=== PATIENT | male | born 1990 | race African-American/Black ===

== ENCOUNTER 2020-10-26 02:00 | Inpatient (IN) | payer BC, SELFPAY ==
[2020-10-26] VITALS (13 sets, daily range): BP systolic 128–166; BP diastolic 29–105; PULSE 77–104; RESP 15–24; TEMP 36.1–36.8; O2SAT 93–99; BMI 35.2
--- NOTE | ~2020-10-26 | CT_ITS ---
EXAMINATION: CT abdomen pelvis w con INDICATION: Upper abdominal pain and vomiting TECHNIQUE: Computed tomographic images of the abdomen and pelvis were obtained after the administrati on of 100 cc of Omnipaque 350 intravenous contrast. The dose-length product (DLP) was 1180.05 mGy-cm. Automated exposure control and iterative reconstruction technique were employed. COMPARISON: None available FINDINGS: The lung bases are clear. The heart size is normal. The liver is diffusely low in attenuati on when compared with the spleen, consistent with hepatic steatosis. The spleen, pancreas, gallbladde r, and adrenal glands are normal. The kidneys are unremarkable. No pathologically enlarged abdominal or pelvic lymph nodes are identified. There is no free intraperitoneal gas or evidence of bowel obstr uction. The appendix is normal. IMPRESSION: 1. No CT correlate for the patient's symptoms. Reviewed, dictated and finalized at location A. GE DECKHAND
--- NOTE | 2020-10-26 02:03 | ED.ABDPAIN ---
HPI - Abdominal Pain General Chief Complaint: Abdominal Pain Stated Complaint: abd pain x 2 weeks Time Seen by Provider: 10/26/20 02:03 Source: patient and EMS Mode of arrival: EMS Limitations: no limitations History of Present Illness HPI narrative: Patient is a 30 yo male with a hx of acid reflux presenting for evaluation of abdominal pain and vomiting. Pt reports vomiting over past two weeks and unintentional 30 lb weight loss. Pt reporting epigastric abdominal pain and lower abdominal pain. No radiation of the pain. Pain is burning, sharp in nature. Pt states he has vomited many times over the past two weeks with inability to tolerate oral intake. Patient has a history of constipation and has been taking over the counter medication to help with his constipation. He reports subjective fever without chills. He also reports headache. Related Data Home Medications Medication Instructions Recorded Confirmed No Home Medications 10/26/20 10/26/20 Allergies Allergy/AdvReac Type Severity Reaction Status Date / Time No Known Allergies Allergy Verified 10/26/20 02:08 Review of Systems Review of Systems: Narrative: CONSTITUTIONAL: Reports subjective fever and chills EYES: Denies visual changes, redness, or discharge. ENT: Denies rhinorrhea, congestion, sore throat, or otalgia. CARDIOVASCULAR: Denies chest pain, palpitations, or edema. RESPIRATORY: No cough, reports shortness of breath GASTROINTESTINAL: Reports upper abdominal pain, nausea and vomiting GENITOURINARY: Denies dysuria or hematuria. SKIN: Denies rash or itching. MUSCULOSKELETAL: Denies back pain, joint pain, or myalgia. NEUROLOGIC: Reports mild headache without weakness or numbness PMFSH Past Medical History Medical History (Updated 10/26/20 @ 04:28 by Unique Coe MD) Acid reflux Surgical History Surgical History (Updated 10/26/20 @ 02:15 by Unique Coe MD) No pertinent past surgical history Social History Social History (Updated 10/26/20 @ 02:15 by Unique Coe MD) Smoking status: Never smoker Alcohol intake: never Substance use: never Gender identity (if verbalized by the patient): Male Exam Narrative: Exam Narrative: GENERAL: Awake, alert, conversant HEAD: Normocephalic, atraumatic. EYES: PERRLA and EOMI. ENT: Nares clear, no rhinorrhea or epistaxis. Mucous membranes moist. NECK: Supple. CHEST: No respiratory distress, breathing even and non labored HEART: Regular rate, sinus rhythm ABDOMEN:Obese, Non distended, mildly tender in epigastrium EXTREMITIES: Normal range of motion. No edema. SKIN: Warm, dry, no rash. NEURO:No focal deficits. Alert and oriented x3 Course Vital Signs Vital signs: Vital Signs Temperature 36.1 C L 10/26/20 01:59 Pulse Rate 104 H 10/26/20 01:59 Respiratory Rate 20 10/26/20 01:59 Blood Pressure 137/97 H 10/26/20 01:59 Pulse Oximetry 96 10/26/20 01:59 Temperature 36.1 C L 10/26/20 01:59 Pulse Rate 96 10/26/20 04:55 Respiratory Rate 18 10/26/20 04:55 Blood Pressure 130/84 10/26/20 04:55 Pulse Oximetry 98 10/26/20 04:55 MDM - Abdominal Pain MDM Narrative Medical decision making narrative: Patient presented for evaluation of abdominal pain, nausea, vomiting and unintentional weight loss. The time of assessment, patient is mildly tachycardic, no severe tenderness on abdominal exam. Abdominal exam is quite benign. Laboratory results are concerning for DKA. Patient has a hyperglycemic state, glucose 500, he is acidotic with a metabolic acidosis. He has a mild transaminitis. No hyperbilirubinemia or leukocytosis. No UTI. Patient has ketones present in his urine and an anion gap of 21. No severe electrolyte derangement. Patient was started on IV fluids, given an insulin bolus and started on insulin infusion. Patient without previous history of diabetes. Wood Scaler consulted, patient will be admitted to the ICU. Differential Diagnosis Differential prosper
--- NOTE | 2020-10-26 02:16 | ECG_ITS ---
Measurements Intervals [place] Rate: 96 P: 51 MS: 154 QRS: 16 QRSD: 90 T: 16 QT: 347 QTc: 439 Interpretive Statements SINUS RHYTHM VOLTAGE CRITERIA FOR LVH NONSPECIFIC T-WAVE ABNORMALITY- INF/LAT LEADS BASELINE ARTIFACT- I, II, III, AVR, AVL BORDERLINE ECG Electronically Signed On 10-26-2020 9:24:31 COAT JOINER LOCKSTITCH by Rufus Leavitt D.O.
[2020-10-26] MEDS: SODIUM CHLORIDE 0.9% IV 1,000 ML 999 ML IV CONT ×2 (02:28→04:50)
[2020-10-26] MEDS: FAMOTIDINE 20 MG/2 ML VIAL IV PUSH (02:29)
[2020-10-26] MEDS: ONDANSETRON INJ 4 MG/2 ML VIAL IV PUSH (02:29)
[2020-10-26] MEDS: MAG HYDROX/AL HYDROX/SIMETH 30 ML UDC PO (02:29)
[2020-10-26] MEDS: MORPHINE SULFATE (*CRX) 4 MG/ML INJ IV PUSH (02:29)
[2020-10-26] MEDS: DICYCLOMINE HCL INJ 20 MG/2 ML VIAL IM (02:30)
[2020-10-26 03:34] LABS: Basophils Absolute Auto 0.1 K/mm3 (0.0-0.1); Basophils Percent Auto 0.8 % (0.2-1.2); Eosinophils Absolute Auto 0.1 K/mm3 (0-0.3); Eosinophils Percent Auto 0.8 % (0-4.4); Hematocrit 50.8 % (42.0-52.0); Hemoglobin 17.7 g/dL (14.0-18.0); Immature Granulocyte Absolute 0.02 K/mm3 (0.00-0.031); Immature Granulocyte Percent A 0.3 % (0-0.5); Lymphocytes Percent Auto 34.2 % (18.3-44.2); Mean Corpuscular HGB Conc 34.8 g/dl (32-36); Mean Corpuscular Hemoglobin 31.6 pg (26-34); Mean Corpuscular Volume 90.7 fl (80-100); Mean Platelet Volume 12.7 fl (7.4-10.4); Monocytes Absolute Auto 0.6 K/mm3 (0.1-0.6); Monocytes Percent Auto 9.2 % (2.6-8.5); Neutrophils Absolute Auto 3.5 K/mm3 (1.3-6.7); Neutrophils Percent Auto 54.7 % (45.5-73.1); Platelet Count Result 182 k/mm3 (150-375); Red Cell Distribution Width 12.4 % (11.5-14.5); White Blood Count 6.4 K/mm3 (4.5-10.0)
[2020-10-26 03:37] LABS: Add Urine Microscopic? YES; Appearance Urine Clear (Clear); Bilirubin Urine Negative (Negative); Blood Urine 1+ (Negative); Color Urine Straw (Yellow); Glucose Urine UA 3+ mg/dL (Negative); Ketones Urine 2+ mg/dL (Negative); Leukocyte Esterase Ur Negative LEU/UL (Negative); Mucus Urine Rare /lpf; Nitrate Urine Negative (Negative); Protein Urine 1+ mg/dL (Negative); Squamous Epithelial Cell Urine Rare /hpf (Few); Urobilinogen Urine Negative mg/dL (<2.0); WBC Urine 0-3 /hpf
[2020-10-26 03:46] LABS: INR 1.1; Partial Thromboplastin Time 21.7 SECONDS (22.3-36.8); Prothrombin Time 14.3 Seconds (11.1-14.7)
[2020-10-26 03:57] LABS: Specific Grav Ur 1.033 (1.001-1.035)
[2020-10-26 03:58] LABS: Alanine Aminotransferase 65 U/L (4-50); Albumin Level 4.7 g/dL (3.5-5.1); Alkaline Phosphatase 171 U/L (38-126); Anion Gap 21 mmol/L (8-16); Aspartate Amino Transferase 33 U/L (17-59); Bilirubin,Total 0.8 mg/dL (0.2-1.3); Blood Urea Nitrogen 15 mg/dL (9-20); Calcium 10.3 mg/dL (8.4-10.2); Carbon Dioxide 18 mmol/L (22-30); Chloride 94 mmol/L (98-107); Estimated Glomerular Filt Rate > 60; Glucose 500 mg/dL (75-110); Lipase 229 U/L (23-300); Sodium 133 mmol/L (137-145)
[2020-10-26 03:59] LABS: Troponin I 0.029 ng/mL (0.000-0.034)
[2020-10-26 04:33] LABS: Alveolar/Arterial O2 Gradient 18.5 mmHg; Base Excess ABG -11.1 mEq/l (+/-2.0); Carboxyhemoglobin 0.6 % THb (0-2.0); Fractional Inspired Oxygen 21 %; HCO3 ABG 15.3 mEq/l (22.0-26.0); Methemoglobin ABG 0.5 %THb (0-1.5); Oxygen Content ABG 22.8 %vol (16.0-22.0); Oxygen Saturation ABG 95.2 % (95.0-100.0); Oxyhemoglobin 94.7 % THb (90.0-100.0); PCO2 ABG 36.7 mmHg (35.0-45.0); PO2 ABG 87.3 mmHg (80.0-100.0); PO2 FiO2 Ratio Arterial Blood 4.16 %; Reduced Hemoglobin 4.2 %THb (0-5.0); Total Hemoglobin 17.1 g/dL (12.0-18.0); pH ABG 7.239 (7.350-7.450)
[2020-10-26 04:34] LABS: Device ROOM AIR; Modified Allen's Test Pass; Site Drawn RIGHT RADIAL
[2020-10-26] MEDS: INSULIN HUMAN REGULAR (*BKC) 100 UNITS/ML 10 UNITS IV PUSH (04:50)
[2020-10-26 04:51] LABS: Magnesium 1.8 mg/dL (1.6-2.3); Phosphorus 4.5 mg/dL (2.5-4.5)
--- NOTE | 2020-10-26 05:09 | PC.NURSE ---
Patient's bedside glucose is 362.
[2020-10-26] MEDS: INSULIN HUMAN REGULAR (*BKC) 100 UNITS in SODIUM CHLORIDE 0.9% IV 99 ML 6.04 UNITS IV CONT (05:13)
[2020-10-26 05:58] LABS: Glucose Point of Care 362 (65-105)
[2020-10-26 06:05] LABS: Beta-Hydroxybutyrate/Acetoacetate 7.17 mmol/L (0.02-0.27)
--- NOTE | 2020-10-26 06:55 | ADMIMU ---
This patient, Placido Mohr, was admitted to IMU status, and placed in Intensive Care Unit-8 at 0605 Patient/family oriented to hospital policies and general routines including ID bracelet, bed and alarms, visiting hours, pain management, procedures, bathroom and other care routines, personal items, smoking policy, room service/diet, and visiting hours. Information on how to activate the Rapid Response Team has been discussed. Patient/Family are encouraged to report perceived risks to care and to ask questions if they do not understand what they are told or what they should do.
[2020-10-26] MEDS: SODIUM CHLORIDE 0.9% IV 1,000 ML 150 ML IV CONT (07:15)
[2020-10-26] MEDS: KCL 20 MEQ/D5/0.45% SOD CHL 1,000 ML 150 ML IV CONT (07:51)
[2020-10-26] MEDS: PANTOPRAZOLE SODIUM IV 40 MG VIAL IV PUSH (08:30)
[2020-10-26 08:38] LABS: Glucose Point of Care 280 (65-105)
[2020-10-26 08:38] LABS: Glucose Point of Care 235 (65-105)
[2020-10-26 08:38] LABS: Glucose Point of Care 245 (65-105)
[2020-10-26 09:03] LABS: Hemoglobin A1C 13.1 % (<5.7)
[2020-10-26 09:43] LABS: Anion Gap 15 mmol/L (8-16); Blood Urea Nitrogen 12 mg/dL (9-20); Calcium 9.2 mg/dL (8.4-10.2); Carbon Dioxide 20 mmol/L (22-30); Chloride 104 mmol/L (98-107); Estimated CRCL calculation 113 ml/min; Estimated Glomerular Filt Rate > 60; Glucose 235 mg/dL (75-110); Potassium 4.2 mmol/L (3.4-5.0); Sodium 139 mmol/L (137-145)
--- NOTE | 2020-10-26 10:01 | WPDCNINT ---
Assessment and Plan Assessment and plan (1) DKA (diabetic ketoacidoses): Qualifiers: Diabetes mellitus complication detail: without coma Diabetes mellitus type: due to underlying condition Qualified Code(s): E08.10 - Diabetes mellitus due to underlying condition with ketoacidosis without coma Code(s): E11.10 - Type 2 diabetes mellitus with ketoacidosis without coma Status: Acute Assessment and Plan: IV fluid bolus and infusion Insulin infusion Q.1 hour Accu-Chek Q.4 hours BMP Start clear liquids as patient denies any nausea vomiting at this time (2) Diabetes mellitus type 2 with complications: Code(s): E11.8 - Type 2 diabetes mellitus with unspecified complications Status: Acute Assessment and Plan: Check HbA1c (3) GERD (gastroesophageal reflux disease): Code(s): K21.9 - Gastro-esophageal reflux disease without esophagitis Status: Acute Assessment and Plan: PPI (4) Abdominal pain: Code(s): R10.9 - Unspecified abdominal pain Status: Acute Assessment and Plan: Likely secondary to DKA Abdomen CT was done and report is pending UA and lipase were normal (5) Elevated liver enzymes: Code(s): R74.8 - Abnormal levels of other serum enzymes Status: Acute Assessment and Plan: Mildly elevated LFT. 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 Patient told me that he was feeling fine until 2 weeks ago when he started having mild abdominal pain which is in lower abdomen, 07/24, 'just hurt'in quality, no radiation, no aggravating or relieving factor. Pain was as stated with nausea vomiting. He thought he was constipated and took some laxative but did not help. He always thought he was having heartburn and took Tums but did not help. Initially he was drinking lot of fluids and soda but recently was unable to keep anything down. He told me he lost 30-40 lb of weight in last few weeks, poor appetite, he was going to bathroom frequently and urinating. No dysuria or hematuria. He thought he was having UTI and to 2 days of antibiotics that he took from his mother. He thinks it was penicillin although he is not sure but that did not help either. Patient denies fever, sick contact with COVID-19, change in sensation of smell or taste, chest pain, shortness of breath, cough, headache. Positive for constipation as above mentioned. All other systems were reviewed and were negative except HPI mentioned above Social history -used to smoke and drink but quit few weeks ago. No drug use Family history-diabetes in both grandparents and on Past medical history-reflux Current meds-none In ED patient was found to be in DKA. He was given IV fluid bolus and started on IV fluids and insulin infusion admitted to ICU for further evaluation management Review of Systems Review of Systems: All systems reviewed & are unremarkable except as noted in HPI and below (HPI) PMFSH Past Medical History Medical History Acid reflux Surgical History Surgical History No pertinent past surgical history Family History Family History Mother Hypertension Grandparent Prostate carcinoma Grandparent Diabetes mellitus Social History Social History Smoking packs per day: 0.25 Smoking cigarettes per day: 5.0 Years smoked: 7 Smoking pack-years: 1.75 Smoking status:
[2020-10-26] MEDS: INSULIN HUMAN REGULAR (*BKC) 100 UNITS in SODIUM CHLORIDE 0.9% IV 99 ML 23.9 UNITS IV CONT (12:10)
[2020-10-26 13:18] LABS: Anion Gap 11 mmol/L (8-16); Blood Urea Nitrogen 10 mg/dL (9-20); Calcium 8.5 mg/dL (8.4-10.2); Carbon Dioxide 24 mmol/L (22-30); Chloride 102 mmol/L (98-107); Estimated CRCL calculation 125 ml/min; Estimated Glomerular Filt Rate > 60; Glucose 210 mg/dL (75-110); Potassium 3.3 mmol/L (3.4-5.0); Sodium 137 mmol/L (137-145)
[2020-10-26] MEDS: ACETAMINOPHEN 325 MG TABLET 650 MG PO (13:47)
[2020-10-26] MEDS: POTASSIUM CHLORIDE 20 MEQ TABLET 40 MEQ PO (13:47)
[2020-10-26 13:59] LABS: Glucose Point of Care 391 (65-105)
[2020-10-26 13:59] LABS: Glucose Point of Care 205 (65-105)
[2020-10-26 13:59] LABS: Glucose Point of Care 353 (65-105)
[2020-10-26 13:59] LABS: Glucose Point of Care 270 (65-105)
[2020-10-26 13:59] LABS: Glucose Point of Care 243 (65-105)
[2020-10-26 13:59] LABS: Glucose Point of Care 325 (65-105)
[2020-10-26 15:00] LABS: Glucose Point of Care 219 (65-105)
--- NOTE | 2020-10-26 16:06 | HP_ITS ---
DATE OF SERVICE: 10/26/2020 CHIEF COMPLAINT: Abdominal pain. HISTORY OF PRESENT ILLNESS: The patient is a 30-year-old male with history of gastroesophageal reflux disease, admitted with abdominal pain and vomiting going on for the last few days. The patient says, gradually he is getting weak and he also has increased urination and polydipsia, going on for the last few days, so he has decided to come to the emergency room. In the emergency room, patient was found to have very high sugar and ketones positive, so patient is admitted for further evaluation and treatment. At the present time, the patient is lying comfortably. His abdominal pain has slightly decreased. The patient's vomiting has decreased. The patient denies any shortness of breath or chest pain. REVIEW OF SYSTEMS: Positive for generalized weakness, nausea, vomiting, or abdominal pain. All other 10 review of systems reviewed. The patient found to be negative. PAST MEDICAL HISTORY: Gastroesophageal reflux disease. PAST SURGICAL HISTORY: None. SOCIAL HISTORY: Nonsmoker. No alcohol. Lives with the family. FAMILY HISTORY: Father and mother side have no family history of diabetes according to the patient. CURRENT MEDICATIONS: None. ALLERGIES: THE PATIENT IS NOT ALLERGIC TO ANY MEDICATION. PHYSICAL EXAMINATION: VITAL SIGNS: At time of admission, blood pressure was 150/90, pulse rate 104, temperature 36.1, respiration rate 20, and pulse ox 98. HEENT: Pupils are equally, reacting to light. NECK: No JVD. No bruit. Neck supple. LUNGS: Air entry good. No additional sound. HEART: S1, S2. Rate and rhythm regular. No S3. No murmurs. ABDOMEN: Soft. Mild generalized tenderness. Bowel sounds positive. No hepatosplenomegaly. EXTREMITIES: No cyanosis or edema. WINDOWS APPLICATION ADMINISTRATOR: Alert and oriented x3. No focal deficits. LABORATORY DATA: Important laboratory data showed WBC count 6.4, hemoglobin 17.7, and platelet count is 182. Sodium 133, potassium 4.0, BUN 15, creatinine 1.0, bicarb was 18, glucose was 500. The patient UA was negative. ABG, pH was 7.23, bicarb was 15, oxygen was 95% saturation. ASSESSMENT: Diabetic ketoacidosis. PLAN: Admit in ICU. Monitor electrolytes. IV insulin. Continue home medication. The patient stays for more than two days diabetic teaching. Dietitian consult. The patient is stable . The patient is full code at present time. Further evaluation and treatment of the patient will be done according to the lab data available and recommended by specialist. D I MT: Drake
[2020-10-26 16:09] LABS: Glucose Point of Care 179 (65-105)
[2020-10-26] MEDS: POTASSIUM CHLORIDE INJ 20 MEQ in SODIUM CHLORIDE 0.45% 1,000 ML 100 ML IV CONT (16:14)
[2020-10-26 17:19] LABS: Glucose Point of Care 147 (65-105)
[2020-10-26 17:27] LABS: Anion Gap 8 mmol/L (8-16); Blood Urea Nitrogen 9 mg/dL (9-20); Calcium 8.5 mg/dL (8.4-10.2); Carbon Dioxide 24 mmol/L (22-30); Chloride 104 mmol/L (98-107); Estimated CRCL calculation 125 ml/min; Estimated Glomerular Filt Rate > 60; Glucose 134 mg/dL (75-110); Potassium 3.9 mmol/L (3.4-5.0); Sodium 136 mmol/L (137-145)
[2020-10-26] MEDS: INSULIN HUMAN REGULAR (*BKC) 100 UNITS in SODIUM CHLORIDE 0.9% IV 99 ML 10.4 UNITS IV CONT (17:56)
[2020-10-26 18:15] LABS: Glucose Point of Care 145 (65-105)
[2020-10-26 19:17] LABS: Glucose Point of Care 205 (65-105)
[2020-10-26] MEDS: HEPARIN SODIUM 5,000 UNITS/ML VIAL 5000 UNITS SUB-Q (20:15)
[2020-10-26 20:19] LABS: Glucose Point of Care 232 (65-105)
[2020-10-26 21:29] LABS: Glucose Point of Care 175 (65-105)
[2020-10-26 21:42] LABS: Anion Gap 9 mmol/L (8-16); Blood Urea Nitrogen 9 mg/dL (9-20); Calcium 8.4 mg/dL (8.4-10.2); Carbon Dioxide 21 mmol/L (22-30); Chloride 104 mmol/L (98-107); Estimated CRCL calculation 125 ml/min; Estimated Glomerular Filt Rate > 60; Glucose 182 mg/dL (75-110); Potassium 3.5 mmol/L (3.4-5.0); Sodium 134 mmol/L (137-145)
[2020-10-26 22:23] LABS: Glucose Point of Care 180 (65-105)
[2020-10-26] MEDS: INSULIN GLARGINE (*BKC) 100 UNITS/ML 50 UNITS SUB-Q (23:12)
[2020-10-26 23:17] LABS: Glucose Point of Care 169 (65-105)
[2020-10-27] VITALS (8 sets, daily range): BP systolic 119–148; BP diastolic 70–100; PULSE 68–98; RESP 16–99; TEMP 36.3–36.9; O2SAT 96–100; BMI 35.2
[2020-10-27 00:16] LABS: Glucose Point of Care 168 (65-105)
[2020-10-27 01:08] LABS: Glucose Point of Care 153 (65-105)
[2020-10-27 05:45] LABS: Hematocrit 45.7 % (42.0-52.0); Hemoglobin 15.8 g/dL (14.0-18.0); Mean Corpuscular HGB Conc 34.6 g/dl (32-36); Mean Corpuscular Hemoglobin 31.4 pg (26-34); Mean Corpuscular Volume 90.9 fl (80-100); Mean Platelet Volume 12.3 fl (7.4-10.4); Platelet Count Result 153 k/mm3 (150-375); Red Blood Count 5.03 M/mm3 (4.6-6.20); Red Cell Distribution Width 12.5 % (11.5-14.5); White Blood Count 6.2 K/mm3 (4.5-10.0)
[2020-10-27 07:33] LABS: Glucose Point of Care 186 (65-105)
[2020-10-27 08:38] LABS: Alanine Aminotransferase 52 U/L (4-50); Albumin Level 3.8 g/dL (3.5-5.1); Alkaline Phosphatase 88 U/L (38-126); Anion Gap 13 mmol/L (8-16); Aspartate Amino Transferase 40 U/L (17-59); Bilirubin,Total 0.9 mg/dL (0.2-1.3); Blood Urea Nitrogen 7 mg/dL (9-20); Calcium 8.9 mg/dL (8.4-10.2); Carbon Dioxide 22 mmol/L (22-30); Chloride 100 mmol/L (98-107); Estimated CRCL calculation 125 ml/min; Estimated Glomerular Filt Rate > 60; Glucose 200 mg/dL (75-110); Magnesium 1.7 mg/dL (1.6-2.3); Potassium 3.6 mmol/L (3.4-5.0); Sodium 135 mmol/L (137-145)
[2020-10-27] MEDS: HEPARIN SODIUM 5,000 UNITS/ML VIAL 5000 UNITS SUB-Q ×2 (09:22→21:17)
[2020-10-27] MEDS: PANTOPRAZOLE SODIUM IV 40 MG VIAL IV PUSH (09:23)
[2020-10-27 12:20] LABS: Glucose Point of Care 360 (65-105)
[2020-10-27] MEDS: INSULIN GLARGINE (*BKC) 100 UNITS/ML 25 UNITS SUB-Q (12:24)
[2020-10-27] MEDS: INSULIN ASPART (*BKC) 100 UNITS/ML SUB-Q ×2 (12:26→18:03)
--- NOTE | 2020-10-27 13:46 | WPDCNINT ---
Assessment and Plan Assessment and plan (1) DKA (diabetic ketoacidoses): Qualifiers: Diabetes mellitus complication detail: without coma Diabetes mellitus type: due to underlying condition Qualified Code(s): E08.10 - Diabetes mellitus due to underlying condition with ketoacidosis without coma Code(s): E11.10 - Type 2 diabetes mellitus with ketoacidosis without coma Status: Acute Assessment and Plan: Patient presented with nausea, vomiting abdominal pain. In the ER patient was found to be hyperglycemic with new onset diabetes. Patient was in DKA and was given IV fluids and started on insulin infusion per DKA protocol -anion gap closes last night, patient transition to long-acting insulin Lantus, sliding scale insulin with meals -initial Lantus was given this morning as patient was hypoglycemic -insulin infusion was stopped at 13 units/hour -consulted instructional technology teacher and personal development educator -hemoglobin A1c is 13.0 this admission (2) Abdominal pain: Code(s): R10.9 - Unspecified abdominal pain Status: Acute Assessment and Plan: Resolved -CT scan of the abdomen and pelvis on 10/26 did not show any abdominal pathology (3) GERD (gastroesophageal reflux disease): Code(s): K21.9 - Gastro-esophageal reflux disease without esophagitis Status: Acute Assessment and Plan: Continue Protonix (4) Elevated liver enzymes: Code(s): R74.8 - Abnormal levels of other serum enzymes Status: Acute Assessment and Plan: Resolved. - Likely related to hypovolemia (5) DVT prophylaxis: Code(s): Z29.9 - Encounter for prophylactic measures, unspecified Status: Acute Assessment and Plan: Heparin SQ Additional Plan Discussed with patient and updated with his condition and plan of care. I answered all questions Code status: Full code Critical care time spent: 43 minutes Due to a high probability of clinically significant, life threatening deterioration, the patient required my highest level of preparedness to intervene emergently and I personally spent this critical care time directly and personally managing the patient. This critical care time included obtaining a history; examining the patient; pulse oximetry; ordering and review of studies; arranging urgent treatment with development of a management plan; evaluation of patient's response to treatment; frequent reassessment; and discussions with other providers. It was exclusive of separately billable procedures and treating other patients and teaching time. Please see Assessment and Plan section and the rest of the note for further information on patient assessment and treatment Lead Applier Consult Note Consult date: 10/27/20 Time Seen: 07:11 Reason for consult: Diabetic ketoacidosis, abdominal pain, nausea and vomiting HPI: Placido Mohr is a 30 year old male with past medical history of GERD, presented to the ED on 04/12/2020 with complains of abdominal pain, nausea, vomiting going on for the last few days. He stated he has also gradually getting a little weak with increased urination and polydipsia. In the ER patient was found to be hyperglycemic and DKA, was given IV fluids and started on insulin infusion per DKA protocol. CT scan of the abdomen and pelvis was normal and did not correlate for patient's symptoms. Patient was transferred to the ICU for further management of DKA. 10/27: Patient seen and examined this morning, denies any abdominal pain, nausea vomiting. Patient has been transition to long-acting insulin sliding scale insulin. Patient tolerated p.o. diet. Is any chest pain, shortness of breath. Patient denies any alcohol, tobacco or illicit drug use. 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
--- NOTE | 2020-10-27 14:34 | PM.IMPN ---
Progress Note: A&P Assessment and Plan (1) Diabetes mellitus type 2 with complications: Code(s): E11.8 - Type 2 diabetes mellitus with unspecified complications Status: Acute Assessment and Plan: new onset DM educator DM diet to follow (2) DKA (diabetic ketoacidoses): Qualifiers: Diabetes mellitus complication detail: without coma Diabetes mellitus type: due to underlying condition Qualified Code(s): E08.10 - Diabetes mellitus due to underlying condition with ketoacidosis without coma Code(s): E11.10 - Type 2 diabetes mellitus with ketoacidosis without coma Status: Acute Assessment and Plan: gap closed insulin ssi lantus and novolog with meals Subjective Date/time seen: 10/27/20 14:34 Interval history: 30-year-old male with history of gastroesophageal reflux disease, admitted with abdominal pain and vomiting going on for the last few days. admitted with dka. gap closed can move to the floor. new onset DM, no specific symptoms Review of Systems Review of Systems: All systems reviewed & are unremarkable except as noted in HPI and below Exam Const: General: cooperative and healthy appearing; No in distress Nutritional Appearance: overweight Orientation/consciousness: oriented to person HENMT: Head: normal to inspection Resp: Effort & Inspection: no respiratory distress Auscultation: no rhonchi and no wheezes Cardio: Rate: regular rate Rhythm: regular rhythm GI: Inspection: normal to inspection GI Palp: No abdominal tenderness, No Guarding due to palpation present (GI) and No Hepatomegaly present Auscultation: normal bowel sounds Neuro: General: oriented to person Objective Data Vital Signs Vital Signs: Vital Signs - 24 hr 10/26/20 16:00 10/26/20 18:00 10/26/20 20:00 Temperature 36.4 C L 36.8 C Pulse Rate 85 90 83 Respiratory Rate 17 24 H 20 Blood Pressure 141/29 H 145/95 H Pulse Oximetry 98 93 93 10/26/20 22:00 10/27/20 00:00 10/27/20 02:00 Temperature 36.8 C Pulse Rate 77 85 98 Respiratory Rate 19 20 20 Blood Pressure 128/79 140/89 140/100 H Pulse Oximetry 96 96 10/27/20 04:00 10/27/20 08:00 10/27/20 09:42 Temperature 36.7 C 36.9 C 36.9 C Pulse Rate 68 84 82 Respiratory Rate 99 H 16 16 Blood Pressure 139/72 148/97 H 148/97 H Pulse Oximetry 97 99 99 10/27/20 11:33 Temperature 36.7 C Pulse Rate 82 Respiratory Rate 20 Blood Pressure 119/70 Pulse Oximetry 100 Intake/Output Intake/Output: Intake & Output 10/24/20 10/25/20 10/26/20 10/27/20 23:59 23:59 23:59 23:59 Intake Total 5072.4 1860 Output Total 1900 850 Balance 3172.4 1010 Meds/Results Medications: Active Medications Generic Name Dose Route Start Last Admin Trade Name Freq PRN Reason Stop Dose Admin Acetaminophen 650 mg 10/26/20 13:25 10/26/20 13:47 Acetaminophen 325 Mg Tablet PO 650 mg Q4H PRN Administration Headache, Fever or Mild Pain Dextrose 12.5 gm 10/26/20 05:15 Dextrose 50% 25 Gm/50 Ml Syringe IV PUSH PRN PRN Hypoglycemia Protocol Glucagon 1 mg 10/26/20 05:15 Glucagon For Inj 1 Mg Vial IM PRN PRN Hypoglycemia Protocol Glucose 15 gm 10/26/20 05:15 Glucose Oral Gel 15 Gm Of Glucse In 37.5 Gm Tube PO PRN PRN Hypoglycemia Protocol Heparin Sodium (Porcine) 5,000 units 10/26/20 21:00 10/27/20 09:22 Heparin Sodium 5,000 Units/Ml Vial SUB-Q 5,000 units Q12HR JOSE ANTONIO Administration Dextrose 1,000 mls @ 100 mls/hr 10/26/20 05:15 Dextrose 5% 1,000 Ml IVPB PRN PRN Hypoglycemia Protocol Insulin Aspart 3 - 6 units 10/27/20 08:00 10/27/20 12:26 Insulin Aspart (*Bkc) 100 Units/Ml SUB-Q 6 units TIDWM JOSE ANTONIO Administration Protocol Insulin Glargine 50 units 10/27/20 21:00 Insulin Glargine (*Bkc) 100 Units/Ml SUB-Q HS JOSE ANTONIO Ondansetron HCl 4 mg 10/26/20 04:45 Ondansetron Inj 4 Mg/2 Ml Vial IV PUSH Q4H PRN
--- NOTE | 2020-10-27 15:59 | PC.NURSE ---
1545-Pt. transferred to [facility] via wheelchair. Pt.'s belongings including cell phone, window shade cutter, and clothing transferred with patient. Pt. stable upon transfer. Report given to to Kelly RIVERA.
[2020-10-27 17:59] LABS: Glucose Point of Care 325 (65-105)
[2020-10-27 21:22] LABS: Glucose Point of Care 345 (65-105)
[2020-10-28 06:15] VITALS: BP 148/94; PULSE 88; RESP 16; TEMP 36.6; O2SAT 99
[2020-10-28 06:58] LABS: Hematocrit 44.2 % (42.0-52.0); Mean Corpuscular HGB Conc 36.2 g/dl (32-36); Mean Corpuscular Hemoglobin 31.7 pg (26-34); Mean Corpuscular Volume 87.7 fl (80-100); Platelet Count Result 160 k/mm3 (150-375); Red Blood Count 5.04 M/mm3 (4.6-6.20); Red Cell Distribution Width 12.2 % (11.5-14.5); White Blood Count 4.5 K/mm3 (4.5-10.0)
[2020-10-28 07:10] LABS: Alanine Aminotransferase 55 U/L (4-50); Albumin Level 3.9 g/dL (3.5-5.1); Alkaline Phosphatase 108 U/L (38-126); Anion Gap 11 mmol/L (8-16); Aspartate Amino Transferase 41 U/L (17-59); Bilirubin,Total 0.9 mg/dL (0.2-1.3); Blood Urea Nitrogen 6 mg/dL (9-20); Calcium 9.1 mg/dL (8.4-10.2); Carbon Dioxide 24 mmol/L (22-30); Chloride 98 mmol/L (98-107); Estimated CRCL calculation 128 ml/min; Estimated Glomerular Filt Rate > 60; Glucose 240 mg/dL (75-110); Magnesium 1.8 mg/dL (1.6-2.3); Potassium 3.6 mmol/L (3.4-5.0); Sodium 133 mmol/L (137-145)
[2020-10-28] MEDS: INSULIN ASPART (*BKC) 100 UNITS/ML 9 UNITS SUB-Q ×2 (08:27→12:17)
[2020-10-28 08:29] LABS: Glucose Point of Care 265 (65-105)
[2020-10-28] MEDS: INSULIN ASPART (*BKC) 100 UNITS/ML SUB-Q ×2 (08:29→12:24)
[2020-10-28 08:30] VITALS: BP 134/90; PULSE 90; RESP 16; TEMP 36.8; O2SAT 100
--- NOTE | 2020-10-28 09:25 | PCCDE ---
Diabetes education f/up: Discussed with Dr Nevarez; pt will go home on 30 units Lantus OD and 9 units Novolog AC (no correction scale). EMR this am indicates pt has [facility]. Met with pt [id number] INSULIN: instructed on basal bolus insulin regimen; reviewed types of insulin, actions, when to take each, how to synchronize rapid acting insulin with his meals. Demonstrated how to use insulin pen using training pen and fake injection site. Pt has been giving own insulin injections with nursing supervision. Pt used to give a relative insulin and he sts he is comfortable with this. Reviewed: site selection/rotation, insulin storage/expiration and sharp disposal. MONITORING: Gave pt a ONE TOUCH VERIO REFLECT BG meter (free of charge), set up and sync'd ONE TOUCH REVEAL sobeida with meter and instructed: how to use, when to test, BG goals, recording and sharing results (using the sobeida). Instructed to test QID (ACHS) and prn for sx of hypo or hyperglycemia. Reviewed causes, sx and tx of hypoglycemia and advised to carry glucose tabs. Reviewed sx of hyperglycemia, DKA and importance of taking insulin as prescribed and follow up with PCP for insulin titration. DIET: Pt already met with RD; pt sts he doesn't like sweets and rarely drinks soda; he does like chips (hot fries). We discussed the importance of portion control with all foods and choosing more fruits and vegetables. Pt was given Diabetes Management book with DM specialist contact info and encouraged to call prn and/or f/up with OP DSMT.
--- NOTE | 2020-10-28 10:10 | PC.NURSE ---
DR. HENSLEY HERE TO SEE PT. 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
[2020-10-28] MEDS: INSULIN GLARGINE (*BKC) 100 UNITS/ML 30 UNITS SUB-Q (10:26)
--- NOTE | 2020-10-28 12:05 | PM.DS ---
DS: Admitting Diagnosis Admitting Diagnosis Admitting Diagnosis: DKA PT admitted from the ER, patient was found to have very high sugar and ketones positive, so patient is admitted for further evaluation and treatment for DKA DS: Discharge Diagnosis Discharge Diagnosis (1) Diabetes mellitus type 2 with complications: Code(s): E11.8 - Type 2 diabetes mellitus with unspecified complications Status: Acute Assessment and Plan: New onset DM, long discussion about glucose monitoring, DM diet and insulin use. Pt met with educator DM in the hospital prior to discharge. (2) DKA (diabetic ketoacidoses): Qualifiers: Diabetes mellitus complication detail: without coma Diabetes mellitus type: due to underlying condition Qualified Code(s): E08.10 - Diabetes mellitus due to underlying condition with ketoacidosis without coma Code(s): E11.10 - Type 2 diabetes mellitus with ketoacidosis without coma Status: Acute Assessment and Plan: Pt was intially in ICu on insulin drip,gap closed. Pt transfered to the medical floor. Pt started on lantus and novolog with meals and SSi. Pt is stable for discharge today. Pt advised to follow with PCP in 1 months time for DM check and HBaic rpt. Here hbaic was 13. DS: Summary Hospital Course Hospital Course: PT admitted from the ER, patient was found to have very high sugar and ketones positive, so patient is admitted for further evaluation and treatment for DKA. Time Spent with Patient Time attestation: Total time spent providing and/or coordinating discharge services:40 minutes on day of discharge Exam Const: General: cooperative and healthy appearing; No in distress Nutritional Appearance: overweight Orientation/consciousness: oriented to person HENMT: Head: normal to inspection Resp: Effort & Inspection: no respiratory distress Auscultation: no rhonchi and no wheezes Cardio: Rate: regular rate Rhythm: regular rhythm GI: Inspection: normal to inspection Auscultation: normal bowel sounds Neuro: General: oriented to person DS: Data Data Completed and Pending Labs on day of discharge: Labs from last 24 hours 10/28/20 10/28/20 10/28/20 08:19 06:41 06:41 WBC 4.5 RBC 5.04 Hgb 16.0 Hct 44.2 MCV 87.7 MCH 31.7 MCHC 36.2 H RDW 12.2 Plt Count 160 MPV 12.0 H Sodium 133 L Potassium 3.6 Chloride 98 Carbon Dioxide 24 Anion Gap 11 BUN 6 L Creatinine 0.90 Estim Creat Clear Calc 128 Estimated GFR > 60 Glucose 240 H POC Capillary Glucose 265 H Calcium 9.1 Magnesium 1.8 Total Bilirubin 0.9 AST 41 ALT 55 H Alkaline Phosphatase 108 Total Protein 7.0 Albumin 3.9 10/27/20 10/27/20 10/27/20 21:17 17:56 12:18 WBC RBC Hgb Hct MCV MCH MCHC RDW Plt Count MPV Sodium Potassium Chloride Carbon Dioxide Anion Gap BUN Creatinine Estim Creat Clear Calc Estimated GFR Glucose POC Capillary Glucose 345 H 325 H 360 H Calcium Magnesium Total Bilirubin AST ALT Alkaline Phosphatase Total Protein Albumin Discharge Plan Discharge Attending physician on discharge: Ami Nevarez Consulting providers: Hakeem Perez ; Dmitry Raphael Discharging Clinician: Ami Nevarez Anticipated Discharge Date/Time: 10/28/20 12:01 Patient Disposition: Home, Self-Care Activity: as tolerated Diet: diabetic Patient Instructions: Antibiotic Form, Diabetic Ketoacidosis (DC), Type 2 Diabetes in Adults: New Diagnosis (DC), Hypertension (DC) Stand Alone Forms: General Discharge Information Follow-up/Referrals: Hakeem Perez MD [Physician] - (NEXT MONTH FOLLOW UP FOR DM CHECK AND HBAIC ) Discharge Medications: New (DME) lancets [Accu-Chek Softclix Lancets] Misc See Rx Instructions .ROUTE .MEDSUPPLY Qty: 50 RF: 0 (DME) insul
[2020-10-28 12:15] LABS: Glucose Point of Care 325 (65-105)
--- NOTE | 2020-10-28 14:25 | PC.NURSE ---
REVIEWED ALL DISCHARGE INSTRUCTIONS W/ PT AND GAVE PCP BOOKLET TO FIND PROVIDER. ALL QUESTIONS ANSWERED AND VOICED UNDERSTANDING OF ALL. DISCHARGED HOME, OUT VIA WC TO MOTHER'S WAITING CAR WITH ALL PERSONAL BELONGINGS, DISCHARGE PACKET, AND NEW BLOOD GLUCOSE METER AND DIABETIC EDUCATION MATERIALS. NO DISTRESS NOTED. VOICES NO C/O.
== END 2020-10-28 14:25 | disposition home or self-care (01) | DRG 420 ==
LOC: ANHED 04:28 → ANHICU 07:16 → ANHCPC 10-28 08:38 → ANHICU 10-30 14:42
PROVIDERS: Internal Medicine; Admitting Provider Student in an Organized Health Care Education/Training Program; Emergency Provider Emergency Medicine; Visit Provider Family Medicine
DX: E11.10 Type 2 diabetes mellitus with ketoacidosis without coma (principal); K21.9 Gastro-esophageal reflux disease without esophagitis; R74.8 Abnormal levels of other serum enzymes; Z87.891 Personal history of nicotine dependence
CPT/HCPCS: 36415; 36600; 74177; 80048; 80053; 81001; 82010; 82375; 82805; 82948; 83036; 83050; 83690; 83735; 84100; 84484; 85025; 85027; 85610; 85730; 93005; 96361; 96372; 96374; 96375; 99291; A9270; C9113; J0500; J1644; J1815; J2270; J2405; J3480; J7030; Q9967

== ENCOUNTER 2021-01-24 16:39 | Emergency (ER) | payer BC, SELFPAY ==
--- NOTE | ~2021-01-24 | XR_ITS ---
EXAMINATION: XR chest 2V 01/24/2021 17:08 INDICATION: Midsternal chest pain PROCEDURE: 2 view chest COMPARISON: 05/08/2018 FINDINGS: The lungs are clear. The cardiomediastinal silhouette is within normal limits. There are no pleural effusions. There is no pneumothorax suspected. IMPRESSION: 1: NO ACUTE CARDIOPULMONARY DISEASE. Reviewed, dictated and finalized at location A. [employer]
[2021-01-24 16:52] VITALS: BP 170/110; PULSE 77; RESP 15; TEMP 36.4; O2SAT 99
--- NOTE | 2021-01-24 16:54 | ECG_ITS ---
Measurements Intervals [place] Rate: 65 P: 10 TN: 177 QRS: 10 QRSD: 93 T: 29 QT: 379 QTc: 396 Interpretive Statements SINUS RHYTHM VOLTAGE CRITERIA FOR LVH BASELINE WANDER- III, AVF, V4-V6 BORDERLINE ECG Electronically Signed On 01-24-2021 18:06:22 WOODEN [employer]AT [employer] by Rufus Leavitt D.O.
[2021-01-24 16:55] VITALS: PULSE 77
[2021-01-24] MEDS: ASPIRIN 81 MG CHEWABLE TABLET 324 MG PO (17:13)
[2021-01-24 17:15] LABS: Basophils Percent Auto 0.6 % (0.2-1.2); Eosinophils Percent Auto 0.6 % (0-4.4); Hematocrit 48.3 % (42.0-52.0); Hemoglobin 15.9 g/dL (14.0-18.0); Immature Granulocyte Absolute 0.01 K/mm3 (0.00-0.031); Immature Granulocyte Percent A 0.2 % (0-0.5); Lymphocytes Absolute Auto 2.18 K/mm3 (0.9-3.2); Lymphocytes Percent Auto 46.8 % (18.3-44.2); Mean Corpuscular HGB Conc 32.9 g/dl (32-36); Mean Corpuscular Hemoglobin 31.2 pg (26-34); Mean Corpuscular Volume 94.9 fl (80-100); Mean Platelet Volume 10.8 fl (7.4-10.4); Monocytes Absolute Auto 0.4 K/mm3 (0.1-0.6); Monocytes Percent Auto 7.9 % (2.6-8.5); Neutrophils Percent Auto 43.9 % (45.5-73.1); Platelet Count Result 199 k/mm3 (150-375); Red Blood Count 5.09 M/mm3 (4.6-6.20); Red Cell Distribution Width 12.8 % (11.5-14.5); White Blood Count 4.7 K/mm3 (4.5-10.0)
[2021-01-24 17:26] LABS: INR 0.9
[2021-01-24 17:27] LABS: Partial Thromboplastin Time 25.5 SECONDS (22.3-36.8)
[2021-01-24 17:31] VITALS: BP 133/101; PULSE 67; RESP 17; O2SAT 99
[2021-01-24 17:33] LABS: Anion Gap 5 mmol/L (8-16); Blood Urea Nitrogen 11 mg/dL (9-20); Calcium 9.3 mg/dL (8.4-10.2); Carbon Dioxide 33 mmol/L (22-30); Chloride 103 mmol/L (98-107); Estimated Glomerular Filt Rate > 60; Glucose 103 mg/dL (75-110); Potassium 4.3 mmol/L (3.4-5.0); Sodium 141 mmol/L (137-145)
[2021-01-24 17:44] LABS: Troponin I < 0.012 ng/mL (0.000-0.034)
--- NOTE | 2021-01-24 17:59 | ED.CHESTPAIN ---
HPI - Chest Pain General Chief Complaint: Chest Pain Stated Complaint: Chest pain Time Seen by Provider: 01/24/21 17:01 Source: patient Mode of arrival: ambulatory Limitations: no limitations History of Present Illness HPI narrative: 30-year-old with a history of insulin-dependent diabetic here with complaints of intermittent chest pain on and off for past few weeks. Patient states that he was diagnosed with diabetes in the month of October and was started on insulin. He states that his blood sugars have been dropping and whenever his blood sugar drops he feels jitteriness in his chest. Patient states that he stopped taking insulin as his blood sugars have been in the 120s and 130s patient states that he feels better when his sugars are about 150. Patient presently on 30 units of Lantus in the morning and 9 units of insulin with meals patient presently denies any chest pain or shortness of breath. He states that occasionally has blurred vision. Related Data Home Medications Medication Instructions Recorded Confirmed alprazolam 01/24/21 Allergies Allergy/AdvReac Type Severity Reaction Status Date / Time No Known Allergies Allergy Verified 01/24/21 16:54 Review of Systems Review of Systems: All systems reviewed & are unremarkable except as noted in HPI and below Eyes: Eyes: Reports blurry vision ENT: Reports system reviewed and no additional complaints, except as documented Cardiovascular: Cardiovascular: Reports as per HPI Respiratory: Respiratory: Reports no additional respiratory complaints Gastrointestinal: Gastrointestinal: Reports no additional gastrointestinal complaints Musculoskeletal: Musculoskeletal: Reports no additional musculoskeletal complaints Neurologic: Reports system reviewed and no additional complaints, except as documented Psychiatric: Psychiatric: Reports no additional psychiatric complaints Endocrine: Endocrine: Reports as per HPI [facility] Past Medical History Medical History Acid reflux Surgical History Surgical History No pertinent past surgical history Family History Family History Mother Hypertension Grandparent Prostate carcinoma Grandparent Diabetes mellitus Social History Social History Smoking packs per day: 0.25 Smoking cigarettes per day: 5.0 Years smoked: 7 Smoking pack-years: 1.75 Smoking status: Former smoker Tobacco type: cigarettes Second hand tobacco smoke exposure: Yes Smoking end date: 10/05/20 Alcohol intake: former Substance use: never Last use: was drinking 2 beers a day Gender identity (if verbalized by the patient): Male Spiritual care concerns: No Exam Narrative: Exam Narrative: GENERAL: Well-appearing, well-nourished, and in no acute distress. HEAD: Normocephalic, atraumatic. EYES: PERRLA and EOMI.. NECK: Supple. CHEST: Clear to auscultation. No respiratory distress. HEART: Regular rate and rhythm. No murmur heard. Normal peripheral pulses. ABDOMEN: Soft, nontender, nondistended, normal active bowel sounds. EXTREMITIES: Normal range of motion. No edema. SKIN: Warm, dry, no rash. NEURO: No focal deficits. Alert and oriented x3. PSYCH: Normal mood and affect. Course Course Emergency Course: Patient presently has no chest pain he was comfortably laying on the bed talking on the phone. I did discuss his lab work advised him to cut down the dosage of Lantus from 30-20 and also Humulin insulin from 9 units to 6 units. Advised him to continue his home medications. Follow-up with his primary doctor Vital Signs Vital signs: Vital Signs Temperature 36.4 C 01/24/21 16:52 Pulse Rate 77 01/24/21 16:52 Respiratory Rate 15 01/24/21 16:52 Blood Pressure 170/110 H 01/24/21 16:52 Pulse Oximetry
[2021-01-24 18:11] VITALS: BP 109/83; PULSE 72; RESP 18; O2SAT 100
== END 2021-01-24 18:13 | disposition home or self-care (01) ==
PROVIDERS: Emergency Provider Family Medicine; PCP Family Medicine
DX: R07.9 Chest pain, unspecified (principal); E11.9 Type 2 diabetes mellitus without complications; K21.9 Gastro-esophageal reflux disease without esophagitis; Z87.891 Personal history of nicotine dependence; Z79.4 Long term (current) use of insulin; R94.31 Abnormal electrocardiogram [ECG] [EKG]
CPT/HCPCS: 36415; 71046; 80048; 84484; 85025; 85610; 85730; 93005; 99284; A9270

== ENCOUNTER 2021-06-18 16:20 | Emergency (ER) | payer BC, SELFPAY ==
[2021-06-18 16:31] VITALS: BP 136/95; PULSE 82; RESP 18; TEMP 36.4; O2SAT 99
--- NOTE | 2021-06-18 16:57 | ED.DENTAL ---
HPI - Dental/Oral General Chief complaint: Dental/Oral Stated complaint: tooth ache Source: patient and RN notes reviewed Mode of arrival: ambulatory History of Present Illness HPI Narrative: This is a 30-year-old male who presented to urgent care with complaints of mouth pain. According to patient approximately 1 week ago he started experiencing pain. Patient was taken [id number] Tylenol with no relief. He is arranging to see a dentist in the near future. The patient denies SOB, CP, palpitation, extremity numbness, lightheadedness, dizziness, constipation, diarrhea, chills, or fever. Teeth map: 1. Dental decay 2. Dental decay Related Data Home Medications Medication Instructions Recorded Confirmed alprazolam 01/24/21 Allergies Allergy/AdvReac Type Severity Reaction Status Date / Time No Known Allergies Allergy Verified 01/24/21 16:54 Review of Systems Review of Systems: A 14 organ system Review of Systems was performed and pertinent positives included in the HPI, otherwise remaining ROS is negative. PMFSH Past Medical History Medical History Acid reflux Surgical History Surgical History No pertinent past surgical history Family History Family History Mother Hypertension Grandparent Prostate carcinoma Grandparent Diabetes mellitus Social History Social History Smoking packs per day: 0.25 Smoking cigarettes per day: 5.0 Years smoked: 7 Smoking pack-years: 1.75 Smoking status: Former smoker Tobacco type: cigarettes Second hand tobacco smoke exposure: Yes Smoking end date: 10/05/20 Alcohol intake: former Substance use: never Last use: was drinking 2 beers a day Gender identity (if verbalized by the patient): Male Spiritual care concerns: No Exam Narrative: GENERAL: This is a well-nourished, well-developed patient, in no apparent distress. HEAD: normocephalic, atraumatic. Decay to tooth #15 and 16 EYES: PERRL. Sclera clear/white. Vision is grossly intact. EARS: External ears normal, auditory canals clear and without drainage, TMs normal without perforation. Hearing grossly intact. NOSE: External nose normal with no obvious nasal discharge, nares without redness, no rhinorrhea. THROAT: Mucous membranes moist, posterior pharynx clear. NECK: Neck supple, non-tender without lymphadenopathy, masses or thyromegaly. CARDIOVASCULAR: Regular rate and rhythm without murmurs, gallops, or rubs. RESPIRATORY: Clear to auscultation. Breath sounds equal bilaterally. No wheezes, rales, or rhonchi. GASTROINTESTINAL: Abdomen soft, non-tender, nondistended. Bowel sounds are active. No hepato-splenomegaly, or palpable masses. No guarding. SKIN: warm, intact with no suspicious lesions or rash, good texture and turgor. NEURO: awake, alert, and oriented to person, place and time. There were no obvious focal neurologic abnormalities. Steady gait EXTREMITIES: Normal range of motion. No edema. No calf tenderness. Negative Homans sign bilaterally. BACK: Nontender without deformity or crepitance. No flank tenderness. Course Course Emergency Course: Patient treated with Augmentin 3 times daily x10 days Vital Signs Vital signs: Vital Signs Temperature 97.6 F 06/18/21 16:31 Pulse Rate 82 06/18/21 16:31 Respiratory Rate 18 06/18/21 16:31 Blood Pressure 136/95 H 06/18/21 16:31 Pulse Oximetry 99 06/18/21 16:31 Temperature 97.6 F 06/18/21 16:31 Pulse Rate 82 06/18/21 16:31 Respiratory Rate 18 06/18/21 16:31 Blood Pressure 136/95 H 06/18/21 16:31 Pulse Oximetry 99 06/18/21 16:31 MDM - Dental/Oral Differential Diagnosis Differential diagnosis: Likely gingival abscess, dental caries, toothache and dental abscess Discharge Plan Discharge Cl
== END 2021-06-18 17:10 | disposition home or self-care (01) ==
PROVIDERS: Emergency Provider Nurse Practitioner
DX: K08.89 Other specified disorders of teeth and supporting structures (principal); K02.9 Dental caries, unspecified; Z87.891 Personal history of nicotine dependence; K21.9 Gastro-esophageal reflux disease without esophagitis
CPT/HCPCS: 99211; 99213; G0463

== ENCOUNTER 2021-09-03 09:55 | Emergency (ER) | payer BC, SELFPAY ==
--- NOTE | ~2021-09-03 | XR_ITS ---
XR hip LT 2V w AP pelvis 09/03/2021 12:13 INDICATION: Left hip pain for one week PROCEDURE: 3 views left hip COMPARISON: No prior studies for comparison. FINDINGS: Fracture, dislocation or subluxation is not identified. The soft tissues appear within norm al limits. No foreign bodies are identified. IMPRESSION: 1: NO ACUTE BONE OR JOINT ABNORMALITY IDENTIFIED. Reviewed, dictated and finalized at location B.
--- NOTE | ~2021-09-03 | XR_ITS ---
XR lumbar spine 2-3V 09/03/2021 12:13 Indication: Low back pain Procedure: 3 views lumbar spine Comparison: No prior studies for comparison. Findings: There is wedge-shaped appearance to T11, T12 and L1, likely developmental or chronic. No ac anne fracture, subluxation or dislocation. No significant disc narrowing of the lumbar spine. No spond ylolisthesis. Normal lumbar lordosis. Pedicles intact. Sacral foramen are symmetric. Impression: 1: No acute abnormality of the lumbar spine. Reviewed, dictated and finalized at location B. Impression: 1: No acute abnormality of the lumbar spine.
[2021-09-03 10:25] VITALS: BP 180/121; PULSE 87; RESP 18; TEMP 36.3; O2SAT 97
[2021-09-03 10:35] LABS: Glucose Point of Care 221 mg/dl (65-105)
[2021-09-03] MEDS: TETANUS,DIPHTHERIA,AC PERTUSSIS ADULT (0.5 ML) BOOSTRIX IM (11:59)
--- NOTE | 2021-09-03 12:27 | ED.LOWEXIN ---
HPI - Extremity Injury (Lower) General Chief Complaint: Extremity Injury, Lower Stated Complaint: Left leg pain, numb x 1 week Time Seen by Provider: 09/03/21 11:20 History of Present Illness HPI Narrative: Patient is a 31-year-old male who presents to the ER with left leg numbness. Intermittent. Worse with going from sitting to standing or with walking up stairs. Reports he recently started exercising on a exercise bike. He also fell asleep in awkward position prior to this beginning. No fevers or chills or sweats. No low back pain. Radiates from his hip down to his foot. Has not tried any pain medication. 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 He is also requesting a tetanus booster and has a prescription. Related Data Home Medications Medication Instructions Recorded Confirmed alprazolam 01/24/21 Allergies Allergy/AdvReac Type Severity Reaction Status Date / Time No Known Allergies Allergy Verified 09/03/21 11:16 Review of Systems Review of Systems: All systems reviewed & are unremarkable except as noted in HPI and below Constitutional: Constitutional: Denies chills, Denies fever(s) and Denies weakness Musculoskeletal: Musculoskeletal: Denies back pain, Denies arthralgias, Denies joint swelling and Denies muscle cramps Integumentary/Breasts: Skin/Breast: Denies rash and Denies skin ulcer Neurologic: Denies focal weakness and Reports numbness [facility] Past Medical History Medical History (Updated 09/03/21 @ 12:42 by Stuart Gustafson MD) Acid reflux Diabetes mellitus type 2 with complications GERD (gastroesophageal reflux disease) Surgical History Surgical History No pertinent past surgical history Family History Family History Mother Hypertension Grandparent Prostate carcinoma Grandparent Diabetes mellitus Social History Social History Smoking packs per day: 0.25 Smoking cigarettes per day: 5.0 Years smoked: 7 Smoking pack-years: 1.75 Smoking status: Former smoker Tobacco type: cigarettes Second hand tobacco smoke exposure: Yes Smoking end date: 10/05/20 Alcohol intake: former Substance use: never Last use: was drinking 2 beers a day Gender identity (if verbalized by the patient): Male Spiritual care concerns: No Exam Narrative: GENERAL: Well-appearing, well-nourished, and in no acute distress. HEAD: Normocephalic, atraumatic. HEART: Regular rate and rhythm. Normal peripheral pulses. Back: No midline tenderness of the thoracic or lumbar spine, no reproducible paraspinal muscular tenderness. EXTREMITIES: Normal range of motion. No edema. SKIN: Warm, dry, no rash. NEURO: No focal deficits of the lower extremities. Alert and oriented x3. PSYCH: Normal mood and affect. Course Course Emergency Course: Patient informed of results. Tetanus updated. Discussed that initial treatment is with anti-inflammatories and muscle x-rays. Patient verbalized understanding. Vital Signs Vital signs: Vital Signs Temperature 97.4 F L 09/03/21 10:25 Pulse Rate 87 09/03/21 10:25 Respiratory Rate 18 09/03/21 10:25 Blood Pressure 180/121 H 09/03/21 10:25 Pulse Oximetry 97 09/03/21 10:25 Temperature 97.4 F L 09/03/21 10:25 Pulse Rate 87 09/03/21 10:25 Respiratory Rate 18 09/03/21 10:25 Blood Pressure 180/121 H 09/03/21 10:25 Pulse Oximetry 97 09/03/21 10:25 MDM - Extremity Injury (Lower) Lab Data Labs: Lab Results 09/03/21 Range/Units 10:32 POC Capillary Glucose 221 H (65-105) mg/dl Imaging Data Radiologist's impression: ITS Impressions Hip/Pelvis X-Ray 09/03/21 12:15 IMPRESSION: 1: NO ACUTE BONE OR JOINT ABNORMALITY IDENTIFIED. Lumbar Spine X-Ray 09/03/21 12:17 Impression: 1: No acute abnormality of the lumbar spi
[2021-09-03 13:00] VITALS: BP 164/100; PULSE 82; RESP 16; O2SAT 98
== END 2021-09-03 13:00 | disposition home or self-care (01) ==
PROVIDERS: Emergency Provider Emergency Medicine; PCP Nurse Practitioner
DX: M54.32 Sciatica, left side (principal); K21.9 Gastro-esophageal reflux disease without esophagitis; E11.9 Type 2 diabetes mellitus without complications; Z87.891 Personal history of nicotine dependence; Z23 Encounter for immunization; Z79.4 Long term (current) use of insulin
CPT/HCPCS: 72100; 73502; 82948; 90471; 90715; 99283

== ENCOUNTER 2021-12-08 11:37 | Emergency (ER) | payer BC, SELFPAY ==
--- NOTE | ~2021-12-08 | XR_ITS ---
EXAMINATION: XR chest 2V EXAM DATE: 12/08/2021 12:00 INDICATION: Mid chest pain. TECHNIQUE: Frontal and lateral projections of the chest obtained and reviewed. Comparison is made to prior examination from 01/24/2021. FINDINGS: The lungs are clear. There are no pleural effusions. The cardiomediastinal silhouette is within normal limits. There is no pneumothorax suspected. The bones and soft tissues are unremarkab le. There is no significant interval change. IMPRESSION: No acute cardiopulmonary findings. Reviewed, dictated and finalized at location A. [employer]
--- NOTE | 2021-12-08 11:35 | ECG_ITS ---
Measurements Intervals [place] Rate: 113 P: 17 VT: 153 QRS: 9 QRSD: 92 T: 37 QT: 313 QTc: 430 Interpretive Statements SINUS TACHYCARDIA DELAYED PRECORDIAL R/S TRANSITION NONSPECIFIC T-WAVE ABNORMALITY- INFERIOR LEADS BASELINE ARTIFACT- II, III, AVR, AVF, V1-V6 ABNORMAL ECG Electronically Signed On 12-08-2021 12:48:25 PLUG DRILL OPERATOR by Rufus Leavitt D.O.
[2021-12-08 11:37] VITALS: BP 152/97; PULSE 115; RESP 24
--- NOTE | 2021-12-08 11:55 | PC.NURSE ---
patient arrived by EMS from home with chief complaint of midsternal chest pain. hx of anxiety, takes xanax BID, with last dose 0900. denies any events that has increased anxiety. states woke up with headache this morning. states that chest pain has decreased slightly. patient to xray at this time
[2021-12-08 12:01] LABS: Basophils Percent Auto 0.4 % (0.2-1.2); Eosinophils Percent Auto 0.6 % (0-4.4); Hematocrit 45.9 % (42.0-52.0); Hemoglobin 15.6 g/dL (14.0-18.0); Immature Granulocyte Absolute 0.03 K/mm3 (0.00-0.031); Immature Granulocyte Percent A 0.6 % (0-0.5); Lymphocytes Absolute Auto 0.66 K/mm3 (0.9-3.2); Mean Corpuscular Hemoglobin 31.7 pg (26-34); Mean Corpuscular Volume 93.3 fl (80-100); Mean Platelet Volume 11.3 fl (7.4-10.4); Monocytes Absolute Auto 0.6 K/mm3 (0.1-0.6); Monocytes Percent Auto 11.4 % (2.6-8.5); Neutrophils Absolute Auto 3.8 K/mm3 (1.3-6.7); Platelet Count Result 156 k/mm3 (150-375); Red Blood Count 4.92 M/mm3 (4.6-6.20); White Blood Count 5.1 K/mm3 (4.5-10.0)
[2021-12-08 12:11] LABS: Prothrombin Time 13.3 Seconds (11.1-14.7)
[2021-12-08 12:12] LABS: Partial Thromboplastin Time 22.9 SECONDS (22.3-36.8)
[2021-12-08 12:13] LABS: Alanine Aminotransferase 58 U/L (4-50); Albumin Level 4.5 g/dL (3.5-5.1); Alkaline Phosphatase 169 U/L (38-126); Anion Gap 15 mmol/L (8-16); Aspartate Amino Transferase 46 U/L (17-59); Bilirubin,Total 0.8 mg/dL (0.2-1.3); Blood Urea Nitrogen 12 mg/dL (9-20); Calcium 9.3 mg/dL (8.4-10.2); Carbon Dioxide 22 mmol/L (22-30); Chloride 96 mmol/L (98-107); Estimated CRCL calculation 116 ml/min; Estimated Glomerular Filt Rate > 60; Glucose 279 mg/dL (65-110); Lipase 206 U/L (23-300); Potassium 3.7 mmol/L (3.4-5.0); Sodium 133 mmol/L (137-145)
--- NOTE | 2021-12-08 12:19 | ED.CHESTPAIN ---
HPI - Chest Pain General Chief Complaint: Chest Pain Stated Complaint: CP,SOB Source: patient, EMS and RN notes reviewed Mode of arrival: EMS Limitations: no limitations History of Present Illness HPI narrative: 31-year-old male with history of diabetes, anxiety and GERD presents to the emergency department department for evaluation of some chest pain. Patient states that he woke up with a headache, took his Xanax and took his insulin. Patient does admit to drinking alcohol last night. Patient states that the headache that he woke up with did improve with medication. Patient states that he did try to eat some breakfast but was not hungry and lost his appetite. Patient states that he did develop some epigastric chest pain after eating some grapefruit. Patient states that he did start to have some anxiety because he was watching his heart rate on his watch. Patient became concerned and called EMS. Patient was treated with aspirin by EMS. Patient states that his chest pain resolved after the aspirin. Upon arrival to the emerge department patient states he does still have a mild headache but denies any chest pain or shortness of breath. Patient is resting comfortably at this time. Related Data Home Medications Medication Instructions Recorded Confirmed alprazolam 0.25 mg PO BID 01/24/21 insulin aspart U-100 [Novolog 20 units SUBCUT TIDWM 12/08/21 U-100 Insulin aspart] insulin glargine [Lantus U-100 20 units SUBCUT DAILY 12/08/21 Insulin] Allergies Allergy/AdvReac Type Severity Reaction Status Date / Time No Known Allergies Allergy Verified 09/03/21 11:16 Review of Systems Review of Systems: CONSTITUTIONAL: Subjective chills. EYES: Denies visual changes, redness, or discharge. ENT: Denies rhinorrhea, congestion, sore throat, or otalgia. CARDIOVASCULAR: Epigastric/chest pain RESPIRATORY: Denies cough or dyspnea. GASTROINTESTINAL: Decreased appetite GENITOURINARY: Denies dysuria or hematuria. SKIN: Denies rash or itching. MUSCULOSKELETAL: Denies back pain, joint pain, or myalgia. NEUROLOGIC: Headache [facility] Past Medical History Medical History (Updated 12/09/21 @ 11:03 by Sergey Howard MD) Acid reflux Diabetes mellitus type 2 with complications GERD (gastroesophageal reflux disease) Surgical History Surgical History No pertinent past surgical history Family History Family History Mother Hypertension Grandparent Prostate carcinoma Grandparent Diabetes mellitus Social History Social History Smoking packs per day: 0.25 Smoking cigarettes per day: 5.0 Years smoked: 7 Smoking pack-years: 1.75 Smoking status: Former smoker Tobacco type: cigarettes Second hand tobacco smoke exposure: Yes Smoking end date: 10/05/20 Alcohol intake: former Substance use: never Last use: was drinking 2 beers a day Gender identity (if verbalized by the patient): Male Spiritual care concerns: No Exam Narrative: APPEARANCE: Well appearing, no pain, no distress, well-nourished. HEAD: normocephalic, atraumatic. EYES: PERRLA/EOMI, conjunctivae clear. NOSE: Normal no drainage RESPIRATORY: Airway patent, respirations nonlabored. Clear to auscultation bilaterally, no rales, rhonchi, wheezing. CARDIOVASCULAR: Regular rate and rhythm without murmurs rubs or gallops. ABDOMINAL: Soft, nontender, nondistended, normal bowel sounds MUSCULOSKELETAL: Moves all extremities. Strength/ROM intact, No edema, No calf tenderness. NEURO: Alert. Cranial nerves II through XII intact. SKIN: Warm, dry. Normal Color PSYCHIATRIC: Normal affect/mood. Course Course Emergency Course: Chest x-ray showed no acute abnormality. EKG showed sinus tach with nonspecific ST changes, no evidence of STEMI Patient was updated on the results of his imaging and labs.
[2021-12-08 12:23] LABS: Troponin I < 0.012 ng/mL (0.000-0.034)
[2021-12-08] MEDS: SODIUM CHLORIDE 0.9% IV 1,000 ML 999 ML IV CONT (12:49)
[2021-12-08] MEDS: ACETAMINOPHEN 325 MG TABLET 650 MG PO (12:49)
[2021-12-08 15:00] LABS: Troponin I < 0.012 ng/mL (0.000-0.034)
[2021-12-08 15:16] VITALS: BP 135/90; PULSE 100; RESP 17; O2SAT 98
== END 2021-12-08 15:20 | disposition home or self-care (01) ==
PROVIDERS: Emergency Provider Emergency Medicine
DX: R10.13 Epigastric pain (principal); R51.9 Headache, unspecified; E11.9 Type 2 diabetes mellitus without complications; K21.9 Gastro-esophageal reflux disease without esophagitis; F41.9 Anxiety disorder, unspecified; Z79.4 Long term (current) use of insulin; Z87.891 Personal history of nicotine dependence
CPT/HCPCS: 36415; 71046; 80053; 83690; 84484; 85025; 85610; 85730; 93005; 96360; 99284; A9270; J7030

== ENCOUNTER 2022-03-24 08:18 | Emergency (ER) | payer BC, SELFPAY ==
--- NOTE | 2022-03-24 08:25 | ED.URI ---
HPI - URI/Sore Throat General Chief Complaint: Upper Respiratory Infection Stated Complaint: cold/flu sx Time Seen by Provider: 03/24/22 08:20 Source: patient Mode of arrival: ambulatory Limitations: no limitations History of Present Illness HPI Narrative: Mr. Bullard is a 31-year-old male patient presenting to the clinic today with complaints of cold/flulike symptoms. He reports symptoms just began yesterday. Reports productive cough with yellow phlegm, pain in the right side of his chest with cough, and diarrhea. He denies any known exposure to anybody with COVID, flu, or strep. He denies any fever or chills. Reports he has had some shortness of breath but not currently. He is a current smoker. MD elicited complaint: sore throat and nasal congestion Related Data Home Medications Medication Instructions Recorded Confirmed alprazolam 0.25 mg PO BID 01/24/21 03/24/22 insulin aspart U-100 [Novolog 20 units SUBCUT TIDWM 12/08/21 03/24/22 U-100 Insulin aspart] insulin glargine [Lantus U-100 20 units SUBCUT DAILY 12/08/21 03/24/22 Insulin] Allergies Allergy/AdvReac Type Severity Reaction Status Date / Time No Known Allergies Allergy Verified 09/03/21 11:16 Review of Systems Review of Systems: Pertinent positives per HPI. Patient denies any fever, chills, rash, headache, visual changes, dizziness, shortness of breath, chest pain, palpitations, nausea, vomiting, diarrhea, constipation, abdominal pain, or any urinary issues. [facility] Past Medical History Medical History Acid reflux Diabetes mellitus type 2 with complications GERD (gastroesophageal reflux disease) Surgical History Surgical History No pertinent past surgical history Family History Family History Mother Hypertension Grandparent Prostate carcinoma Grandparent Diabetes mellitus Social History Social History Smoking packs per day: 0.25 Smoking cigarettes per day: 5.0 Years smoked: 7 Smoking pack-years: 1.75 Smoking status: Former smoker Tobacco type: cigarettes Second hand tobacco smoke exposure: Yes Smoking end date: 10/05/20 Alcohol intake: former Substance use: never Last use: was drinking 2 beers a day Gender identity (if verbalized by the patient): Male Spiritual care concerns: No Comments At the time of my signature, I reviewed and agree with the nursing past medical, surgical, social, and family history. There is no relevant family history pertinent to the patient complaint. Exam Narrative: General: Well-developed, obese, in no apparent distress Head: Normocephalic, atraumatic Eyes: Pupils equally round and reactive to light bilaterally, EOM intact, sclera and conjunctive clear, no discharge, lids normal Ears: TMs intact and clear, ear canals clear, no drainage, grossly hearing normal. Nose: Nares patent, clear nasal discharge, moderate inflammation, no sinus tenderness. Mouth: Oral pharynx without lesions or masses, good dentition, MMM. Postnasal drip oropharynx red Neck: Supple, trachea midline, no enlargement of anterior or posterior cervical nodes, no thyroid masses or goiter palpable. Cardio: Regular rate and rhythm, s1 and s2 normal, no murmur appreciated. Resp: Lung sounds tight otherwise clear to auscultation bilaterally, no rhonchi, rales, wheezing or rubs Course Course Emergency Course: Portions of this record may have been created with voice recognition software. Level of Care: Express Care Visit Vital Signs Vital signs: Vital Signs Temperature 37.7 C H 03/24/22 08:34 Pulse Rate 104 H 03/24/22 08:34 Respiratory Rate 16 03/24/22 08:34 Blood Pressure 130/80 03/24/22 08:34 Pulse Oximetry 98 03/24/22 08:34 Temperature 37
[2022-03-24 08:34] VITALS: BP 130/80; PULSE 104; RESP 16; TEMP 37.7; O2SAT 98
== END 2022-03-24 08:57 | disposition home or self-care (01) ==
PROVIDERS: Emergency Provider Nurse Practitioner Family
DX: J40 Bronchitis, not specified as acute or chronic (principal); J06.9 Acute upper respiratory infection, unspecified; E11.9 Type 2 diabetes mellitus without complications; K21.9 Gastro-esophageal reflux disease without esophagitis; Z79.4 Long term (current) use of insulin
CPT/HCPCS: 87804; 99213; G0463

== ENCOUNTER 2023-07-01 16:40 | Emergency (ER) | payer BC, SELFPAY ==
--- NOTE | 2023-07-01 16:55 | ED.URI ---
HPI - URI/Sore Throat General Chief Complaint: Upper Respiratory Infection Stated Complaint: cough Time Seen by Provider: 07/01/23 16:43 Source: patient Mode of arrival: ambulatory Limitations: no limitations History of Present Illness HPI Narrative: Placido is a 32-year-old male patient presenting to clinic today with complaints of a cough and congestion x2 days. He also reports that he has a possible dental infection to the right upper and lower jaw. He reports dental pain started a few days ago. No known fever or chills. He is a type 1 diabetic. Is requesting a refill of his albuterol inhaler while he is here. MD elicited complaint: cough, nasal congestion and other (Dental pain) Related Data Home Medications Medication Instructions Recorded Confirmed alprazolam 0.25 mg tablet 0.25 mg PO BID 01/24/21 03/24/22 insulin aspart U-100 100 unit/mL 20 units subcut TIDWM 12/08/21 03/24/22 subcutaneous solution (Novolog U-100 Insulin aspart) insulin glargine 100 unit/mL 20 units subcut DAILY 12/08/21 03/24/22 subcutaneous solution (Lantus U-100 Insulin) Allergies Allergy/AdvReac Type Severity Reaction Status Date / Time No Known Allergies Allergy Verified 07/01/23 17:01 Review of Systems Review of Systems: Pertinent positives per HPI. Patient denies any fever, chills, rash, headache, visual changes, dizziness, shortness of breath, chest pain, palpitations, nausea, vomiting, diarrhea, constipation, abdominal pain, or any urinary issues. [facility] Past Medical History Medical History Acid reflux Diabetes mellitus type 2 with complications GERD (gastroesophageal reflux disease) Surgical History Surgical History No pertinent past surgical history Family History Family History Mother Hypertension Grandparent Prostate carcinoma Grandparent Diabetes mellitus Social History Social History Smoking packs per day: 0.25 Smoking cigarettes per day: 5.0 Years smoked: 7 Smoking pack-years: 1.75 Smoking status: Former smoker Tobacco type: cigarettes Second hand tobacco smoke exposure: Yes Smoking end date: 10/05/20 Alcohol intake: former Substance use: never Last use: was drinking 2 beers a day Gender identity (if verbalized by the patient): Male Spiritual care concerns: No Comments At the time of my signature, I reviewed and agree with the nursing past medical, surgical, social, and family history. There is no relevant family history pertinent to the patient complaint. Exam Narrative: General: Well-developed, obese, in no apparent distress Head: Normocephalic, atraumatic Eyes: Pupils equally round and reactive to light bilaterally, EOM intact, sclera and conjunctive clear, no discharge, lids normal Ears: TMs intact and congested, ear canals clear, no drainage, grossly hearing normal. Nose: Nares patent, clear discharge, no inflammation, no sinus tenderness. Mouth: Oral pharynx without lesions or masses, poor dentition, MMM. Broken decayed teeth to the right lower jaw 1st molar and the right upper jaw 1st molar Neck: Supple, trachea midline, no enlargement of anterior or posterior cervical nodes, no thyroid masses or goiter palpable. Cardio: Regular rate and rhythm, s1 and s2 normal, no murmur appreciated. Resp: Clear to auscultation bilaterally, no rhonchi, rales, wheezing or rubs Course Course Emergency Course: Portions of this record may have been created with voice recognition software. Level of Care: Express Care Visit Vital Signs Vital signs: Vital signs reviewed MDM - URI/Sore Throat MDM Narrative Medical decision making narrative: At the time of visit patient is resting on the exam table. I suspect p
[2023-07-01 17:03] VITALS: BP 118/74; PULSE 103; RESP 16; TEMP 36.4; O2SAT 96
== END 2023-07-01 17:22 | disposition home or self-care (01) ==
PROVIDERS: Emergency Provider Nurse Practitioner Family; PCP Nurse Practitioner Adult Health
DX: K04.7 Periapical abscess without sinus (principal); J06.9 Acute upper respiratory infection, unspecified; Z87.891 Personal history of nicotine dependence; K21.9 Gastro-esophageal reflux disease without esophagitis; E11.9 Type 2 diabetes mellitus without complications
CPT/HCPCS: 99213; G0463

== ENCOUNTER 2023-12-20 14:37 | Emergency (ER) | payer BC, SELFPAY ==
[2023-12-20 14:46] VITALS: BP 136/89; PULSE 82; RESP 20; TEMP 36.3; O2SAT 100
--- NOTE | 2023-12-20 15:28 | ED.URI ---
HPI - URI/Sore Throat General Chief Complaint: Upper Respiratory Infection Stated Complaint: fever,cough Time Seen by Provider: 12/20/23 15:28 Source: patient, RN notes reviewed and old records reviewed Mode of arrival: ambulatory Limitations: no limitations History of Present Illness HPI Narrative: 33-year-old male presents to the [facility] with complaints of fever, cough, body aches and sore throat for the last 4 days. Has drink liquid IV, no other treatment prior to arrival Daughter is positive for influenza B Patient reports his blood sugars have been maintaining around 100 Related Data Home Medications Medication Instructions Recorded Confirmed alprazolam 0.25 mg tablet 0.25 mg PO BID 01/24/21 03/24/22 insulin aspart U-100 100 unit/mL 20 units subcut TIDWM 12/08/21 03/24/22 subcutaneous solution (Novolog U-100 Insulin aspart) insulin glargine 100 unit/mL 20 units subcut DAILY 12/08/21 03/24/22 subcutaneous solution (Lantus U-100 Insulin) Allergies Allergy/AdvReac Type Severity Reaction Status Date / Time No Known Allergies Allergy Verified 07/01/23 17:01 Review of Systems Review of Systems: All systems reviewed & are unremarkable except as noted in HPI and below Constitutional: Constitutional: Reports as per HPI, Reports body ache(s) and Reports fatigue Eyes: Eyes: Reports no additional eye complaints ENT: Reports as per HPI and Reports sore throat Cardiovascular: Cardiovascular: Reports no additional cardiovascular complaints, Denies chest pain and Denies dyspnea Respiratory: Respiratory: Reports as per HPI, Denies chest congestion, Denies cough and Denies dyspnea Gastrointestinal: Gastrointestinal: Reports no additional gastrointestinal complaints, Denies abdominal pain, Denies nausea and Denies vomiting Musculoskeletal: Musculoskeletal: Reports no additional musculoskeletal complaints Integumentary/Breasts: Skin/Breast: Reports system reviewed and no additional complaints, except as docu Neurologic: Reports system reviewed and no additional complaints, except as documented Psychiatric: Psychiatric: Reports no additional psychiatric complaints Allergic/Immunologic: Allergic/Immunologic: Reports no additional allergic/immunologic complaints PMFSH Past Medical History Medical History Acid reflux Diabetes mellitus type 2 with complications GERD (gastroesophageal reflux disease) Surgical History Surgical History No pertinent past surgical history Family History Family History Mother Hypertension Grandparent Prostate carcinoma Grandparent Diabetes mellitus Social History Social History Smoking packs per day: 0.25 Smoking cigarettes per day: 5.0 Years smoked: 7 Smoking pack-years: 1.75 Smoking status: Former smoker Tobacco type: cigarettes Second hand tobacco smoke exposure: Yes Smoking end date: 10/05/20 Alcohol intake: former Substance use: never Last use: was drinking 2 beers a day Gender identity (if verbalized by the patient): Male Spiritual care concerns: No Comments At the time of my signature, I reviewed and agree with the nursing past medical, surgical, social, and family history. There is no relevant family history pertinent to the patient complaint. Exam Const: General: cooperative, healthy appearing, comfortable, no acute distress, well developed, alert and well nourished Nutritional Appearance: well nourished and obese Orientation/consciousness: patient oriented x3 Limitations: no limitations HENMT: Head: normal to inspection Ears: hearing grossly normal bilaterally, external ears normal, TM's normal bilaterally, EAC's normal, mastoids normal and no periauricular adenopathy Face/Nose/Sinus: Normal external nose pr
== END 2023-12-20 15:49 | disposition home or self-care (01) ==
PROVIDERS: Emergency Provider Nurse Practitioner; PCP Nurse Practitioner Adult Health
DX: J11.1 Influenza due to unidentified influenza virus with other respiratory manifestations (principal); Z20.822 Contact with and (suspected) exposure to COVID-19; F17.210 Nicotine dependence, cigarettes, uncomplicated; K21.9 Gastro-esophageal reflux disease without esophagitis; E11.9 Type 2 diabetes mellitus without complications; Z79.4 Long term (current) use of insulin
CPT/HCPCS: 87081; 87426; 87804; 87880; 99213; G0463

== ENCOUNTER 2024-03-18 16:08 | Emergency (ER) | payer BC, SELFPAY ==
--- NOTE | 2024-03-18 16:10 | ED.GENADULT ---
HPI - General Adult General Chief complaint: Skin/Abscess/Foreign Body Stated complaint: Rash Time Seen by Provider: 03/18/24 16:30 Source: patient, RN notes reviewed and old records reviewed Mode of arrival: ambulatory Limitations: no limitations History of Present Illness HPI narrative: 33-year-old male presents to the [facility] with complaints of a rash to the dorsal aspect bilateral forearms. Tried using a different soap and some creams. Patient describes as being itchy Related Data Home Medications Medication Instructions Recorded Confirmed insulin aspart U-100 100 unit/mL 20 units subcut TIDWM 12/08/21 03/18/24 subcutaneous solution (Novolog U-100 Insulin aspart) insulin glargine 100 unit/mL 20 units subcut DAILY 12/08/21 03/18/24 subcutaneous solution (Lantus U-100 Insulin) alprazolam 1 mg tablet 1 mg PO BID 03/18/24 03/18/24 amlodipine 5 mg tablet 5 mg PO DAILY 03/18/24 03/18/24 amoxicillin 875 mg tablet 875 mg PO BID 03/18/24 03/18/24 insulin lispro 100 unit/mL See Rx Instructions .Route .COMPLEX 03/18/24 03/18/24 subcutaneous pen venlafaxine 37.5 mg 37.5 mg PO DAILY 03/18/24 03/18/24 capsule,extended release 24 hr Allergies Allergy/AdvReac Type Severity Reaction Status Date / Time No Known Allergies Allergy Verified 03/18/24 16:10 Review of Systems Review of Systems: All systems reviewed & are unremarkable except as noted in HPI and below Constitutional: Constitutional: Reports no additional constitutional complaints Eyes: Eyes: Reports no additional eye complaints ENT: Reports system reviewed and no additional complaints, except as documented Cardiovascular: Cardiovascular: Reports no additional cardiovascular complaints, Denies chest pain and Denies dyspnea Respiratory: Respiratory: Reports no additional respiratory complaints, Denies chest congestion, Denies cough and Denies dyspnea Gastrointestinal: Gastrointestinal: Reports no additional gastrointestinal complaints, Denies abdominal pain, Denies nausea and Denies vomiting Musculoskeletal: Musculoskeletal: Reports no additional musculoskeletal complaints Integumentary/Breasts: Skin/Breast: Reports as per HPI Neurologic: Reports system reviewed and no additional complaints, except as documented Psychiatric: Psychiatric: Reports no additional psychiatric complaints Allergic/Immunologic: Allergic/Immunologic: Reports no additional allergic/immunologic complaints PMFSH Past Medical History Medical History Acid reflux Diabetes mellitus type 2 with complications GERD (gastroesophageal reflux disease) Surgical History Surgical History No pertinent past surgical history Family History Family History Mother Hypertension Grandparent Prostate carcinoma Grandparent Diabetes mellitus Social History Social History Smoking packs per day: 0.25 Smoking cigarettes per day: 5.0 Years smoked: 7 Smoking pack-years: 1.75 Smoking status: Former smoker Tobacco type: cigarettes Second hand tobacco smoke exposure: Yes Smoking end date: 10/05/20 Alcohol intake: former Substance use: never Last use: was drinking 2 beers a day Gender identity (if verbalized by the patient): Male Spiritual care concerns: No Comments At the time of my signature, I reviewed and agree with the nursing past medical, surgical, social, and family history. There is no relevant family history pertinent to the patient complaint. Exam Const: General: cooperative, healthy appearing, comfortable, no acute distress, well developed, alert and well nourished Nutritional Appearance: well nourished and obese Orientation/consciousness: patient oriented x3 Limitations: no limitations HENMT: Head: normal to inspection E
[2024-03-18 16:29] VITALS: BP 169/105; PULSE 92; RESP 16; TEMP 36.8; O2SAT 99
== END 2024-03-18 17:20 | disposition home or self-care (01) ==
PROVIDERS: Emergency Provider Nurse Practitioner; PCP Nurse Practitioner Adult Health
DX: L25.9 Unspecified contact dermatitis, unspecified cause (principal); Z87.891 Personal history of nicotine dependence; K21.9 Gastro-esophageal reflux disease without esophagitis; E11.9 Type 2 diabetes mellitus without complications; Z79.4 Long term (current) use of insulin
CPT/HCPCS: 99213; G0463

== ENCOUNTER 2024-06-11 15:20 | Emergency (ER) | payer BC, SELFPAY ==
[2024-06-11 15:27] VITALS: BP 143/100; PULSE 96; RESP 16; TEMP 36.7; O2SAT 95
--- NOTE | 2024-06-11 16:05 | ED.DENTAL ---
HPI - Dental/Oral General Chief complaint: Dental/Oral Stated complaint: TOOTHACHE Time Seen by Provider: 06/11/24 15:43 History of Present Illness HPI Narrative: 33-year-old male with history of chronic dental caries presents to the emergency department for evaluation for worsening dental pain. Patient has not had follow-up with a dentist for this. Related Data Home Medications Medication Instructions Recorded Confirmed insulin aspart U-100 100 unit/mL 20 units subcut TIDWM 12/08/21 03/18/24 subcutaneous solution (Novolog U-100 Insulin aspart) insulin glargine 100 unit/mL 20 units subcut DAILY 12/08/21 03/18/24 subcutaneous solution (Lantus U-100 Insulin) alprazolam 1 mg tablet 1 mg PO BID 03/18/24 03/18/24 amlodipine 5 mg tablet 5 mg PO DAILY 03/18/24 03/18/24 amoxicillin 875 mg tablet 875 mg PO BID 03/18/24 03/18/24 insulin lispro 100 unit/mL See Rx Instructions .Route .COMPLEX 03/18/24 03/18/24 subcutaneous pen venlafaxine 37.5 mg 37.5 mg PO DAILY 03/18/24 03/18/24 capsule,extended release 24 hr Allergies Allergy/AdvReac Type Severity Reaction Status Date / Time No Known Allergies Allergy Verified 06/11/24 15:30 Review of Systems Review of Systems: All systems reviewed & are unremarkable except as noted in HPI and below PMFSH Past Medical History Medical History Acid reflux Diabetes mellitus type 2 with complications GERD (gastroesophageal reflux disease) Surgical History Surgical History No pertinent past surgical history Family History Family History Mother Hypertension Grandparent Prostate carcinoma Grandparent Diabetes mellitus Social History Social History Smoking packs per day: 0.25 Smoking cigarettes per day: 5.0 Years smoked: 7 Smoking pack-years: 1.75 Smoking status: Former smoker Tobacco type: cigarettes Second hand tobacco smoke exposure: Yes Smoking end date: 10/05/20 Alcohol intake: former Substance use: never Last use: was drinking 2 beers a day Gender identity (if verbalized by the patient): Male Spiritual care concerns: No Course Course Emergency Course: APPEARANCE: Well appearing, no pain, no distress, well-nourished. HEAD: normocephalic, atraumatic. EYES: PERRLA/EOMI, conjunctivae clear. NOSE: Normal no drainage EARS:TMS clear with good light reflex. THROAT: Pharynx clear, no exudate. NECK: Supple. No adenopathy, no masses. RESPIRATORY: Airway patent, respirations nonlabored. Clear to auscultation bilaterally, no rales, rhonchi, wheezing. CARDIOVASCULAR: Regular rate and rhythm without murmurs rubs or gallops. ABDOMINAL: Soft, nontender, nondistended, normal bowel sounds MUSCULOSKELETAL: Moves all extremities. Strength/ROM intact, No edema, No calf tenderness. NEURO: Alert. Cranial nerves II through XII intact. Grossly intact SKIN: Warm, dry. Normal Color Vital Signs Vital signs: Vital Signs Temperature 98.1 F 06/11/24 15:27 Pulse Rate 96 06/11/24 15:27 Respiratory Rate 16 06/11/24 15:27 Blood Pressure 143/100 H 06/11/24 15:27 Pulse Oximetry 95 06/11/24 15:27 Oxygen Delivery Room Air 06/11/24 15:27 Temperature 98.1 F 06/11/24 15:27 Pulse Rate 96 06/11/24 15:27 Respiratory Rate 16 06/11/24 15:27 Blood Pressure 143/100 H 06/11/24 15:27 Pulse Oximetry 95 06/11/24 15:27 Oxygen Delivery Room Air 06/11/24 15:27 Discharge Plan Discharge Clinical Impression: Decay, teeth, Toothache Patient Disposition: Home, Self-Care Condition: Stable Instructions: Antibiotic Form, Toothache (ED) Additional Instructions: Antibiotic as directed until completed. Tylenol and ibuprofen for pain control. You need to have close follow-up with a dentist. If you have
[2024-06-11] MEDS: AMOXICILLIN/CLAVULANATE K 875-125 MG TAB 1 TABLET PO (16:20)
== END 2024-06-11 16:26 | disposition home or self-care (01) ==
LOC: ANHED 16:24
PROVIDERS: Emergency Provider Emergency Medicine; PCP Nurse Practitioner Adult Health
DX: K02.9 Dental caries, unspecified (principal); K08.89 Other specified disorders of teeth and supporting structures
CPT/HCPCS: 99283; A9270

== ENCOUNTER 2024-11-02 15:55 | Emergency (ER) | payer BC, SELFPAY ==
--- NOTE | ~2024-11-02 | XR_ITS ---
EXAMINATION: XR chest 2V DATE: 11/02/2024 16:13 INDICATION: Cough and shortness of breath. TECHNIQUE: Frontal and lateral views of the chest were obtained. COMPARISON: Chest 2 views 12/08/2021, CT abdomen and pelvis 10/26/2020 FINDINGS: Sensitivity is decreased by obesity. There are airspace opacities in left mid and lower delmi g zones. No pleural effusion or pneumothorax. Size is normal. IMPRESSION: 1. Airspace opacities in left mid and lower lung zones, consistent with atelectasis versus pneumonia. Reviewed, dictated and finalized at location A. MANAGER IMPRESSION: 1. Airspace opacities in left mid and lower lung zones, consistent with atelect asis versus pneumonia.
--- NOTE | 2024-11-02 15:55 | ED.URI ---
HPI - URI/Sore Throat General Chief Complaint: Upper Respiratory Infection Stated Complaint: Cough Time Seen by Provider: 11/02/24 15:55 Source: patient Mode of arrival: ambulatory Limitations: no limitations History of Present Illness HPI Narrative: Placido is a 34 year old male patient presenting to the clinic today with c/o cough, wheezing, shortness of breath, chills, and fatigue x1 week. He reports he is concerned that he may have pneumonia. Cough is productive but cannot get the sputum out. Denies any known fever. MD elicited complaint: cough, nasal congestion and other (Chest congestion, wheezing, shortness breath) Related Data Home Medications ?Medication ?Instructions ?Recorded ?Confirmed ?Last Taken ?Type insulin aspart U-100 100 unit/mL 20 units subcut TIDWM 12/08/21 03/18/24 Unknown History subcutaneous solution (Novolog U-100 Insulin aspart) insulin glargine 100 unit/mL 20 units subcut DAILY 12/08/21 03/18/24 Unknown History subcutaneous solution (Lantus U-100 Insulin) alprazolam 1 mg tablet 1 mg PO BID 03/18/24 03/18/24 Unknown History amlodipine 5 mg tablet 5 mg PO DAILY 03/18/24 03/18/24 Unknown History insulin lispro 100 unit/mL See Rx Instructions .Route .COMPLEX 03/18/24 03/18/24 Unknown History subcutaneous pen venlafaxine 37.5 mg 37.5 mg PO DAILY 03/18/24 03/18/24 Unknown History capsule,extended release 24 hr Allergies Allergy/AdvReac Type Severity Reaction Status Date / Time No Known Allergies Allergy Verified 11/02/24 15:55 Review of Systems Review of Systems: Pertinent positives per HPI. Patient denies any fever, chills, rash, headache, visual changes, dizziness, chest pain, palpitations, nausea, vomiting, diarrhea, constipation, abdominal pain, or any urinary issues. [facility] Past Medical History Medical History GERD (gastroesophageal reflux disease) Diabetes mellitus type 2 with complications Acid reflux Surgical History Surgical History No pertinent past surgical history Family History Family History Mother Hypertension Grandparent Prostate carcinoma Grandparent Diabetes mellitus Social History Social History Smoking packs per day: 0.25 Smoking cigarettes per day: 5.0 Years smoked: 7 Smoking pack-years: 1.75 Smoking status: Former smoker Tobacco type: cigarettes Second hand tobacco smoke exposure: Yes Smoking end date: 10/05/20 Alcohol intake: former Substance use: never Last use: was drinking 2 beers a day Gender identity (if verbalized by the patient): Male Spiritual care concerns: No Comments At the time of my signature, I reviewed and agree with the nursing past medical, surgical, social, and family history. There is no relevant family history pertinent to the patient complaint. Exam Narrative: General: Well-developed, obese, in no apparent distress Head: Normocephalic, atraumatic Eyes: Pupils equally round and reactive to light bilaterally, EOM intact, sclera and conjunctive clear, no discharge, lids normal Ears: TMs intact and clear, ear canals clear, no drainage, grossly hearing normal. Nose: Nares patent, no discharge, no inflammation, no sinus tenderness. Mouth: Oral pharynx without lesions or masses, good dentition, MMM. Neck: Supple, trachea midline, no enlargement of anterior or posterior cervical nodes, no thyroid masses or goiter palpable. Cardio: Regular rate and rhythm, s1 and s2 normal, no murmur appreciated. Resp: Diminished in the bases, no rhonchi, rales, wheezing or rubs Course Course Emergency Course: Portions of this record may have been created with voice recognition software. Level of Care: Express Care Visit Vital Signs Vital signs: Vital Signs Temperature 36.9 C 11/02/24 16:05 Pulse Rate 80 11/02/24 16:05 Respiratory Rate 18 11/02/24 16:05 Blood Pressure 155/103 H 11/02/24 16:05 Pulse Oximetry 97 11/02/24 16:05 Oxygen Delivery Room Air 11/02/24 16:05 Temperature 36.9 C 11/02/24 16:05 Pulse Rate 80 11/02/24 16:05 Respiratory Rate 18 11/02/24 16:05 Blood Pressure 155/103 H 11/02/24 16:05 Pulse Oximetry 97 11/02/24 16:05 Oxygen Delivery Room Air 11/02/24 16:05 Vital signs reviewed MDM - URI/Sore Throat MDM Narrative Medical decision making narrative: At the time of visit patient is resting comfortably on the exam table. Patient appears to be nontoxic. Diagnostics: Chest x-ray was performed and shows probable left mid and lower lobe pneumonia Plan: Will place the patient on azithromycin and Augmentin to cover for community-acquired pneumonia. Will also give the patient albuterol inhaler and incentive spirometer. Supportive measures were discussed with the patient and they voiced understanding discharge instructions and agrees to treatment plan. Return precautions reviewed Differential Diagnosis Differential diagnosis: Likely upper respiratory infection, otitis media, sinusitis, viral infection, bronchitis, influenza, pharyngitis and other (COVID) Discharge Plan Discharge Clinical Impression: Pneumonia Qualifiers: Pneumonia type: due to unspecified organism Laterality: left Lung location: lower lobe of lung Qualified Code(s): J18.9 - Pneumonia, unspecified organism Patient Disposition: Home, Self-Care Condition: Stable Instructions: Antibiotic Form, How to Use an Incentive Spirometer (ED), Pneumonia (ED) Additional Instructions: Chest x-ray shows probable left mid and lower lung zone pneumonia Take prescription medications only as prescribed-albuterol inhaler, azithromycin, and Augmentin Use incentive spirometer every 2 hours while awake Increase fluids and stay well hydrated Tylenol/motrin for pain/fever Flonase and OTC antihistamines as directed Vicks vapor rub to open sinuses Sinus rinses for congestion Cepacol spray, cough drops, throat lozenges, warm tea with honey/lemon, gargle salt water to soothe throat BRAT diet for diarrhea Clear liquids x 24 hours then advance as tolerated for nausea/vomiting Go to the ED if you develop a worsening in your condition- high fever not controlled by Tylenol or Motrin, dehydration, weakness, lethargy, shortness of breath, or chest pain. Follow up with your PCP in 3-5 days if symptoms persist. Patient Language: [place] Prescriptions: New azithromycin 250 mg tablet See Rx Instructions .ROUTE .COMPLEX Qty: 6 0RF Rx Instructions: For 250 mg dose pack: take 500 mg today (day 1), then 250 mg for 4 days (days 2-5) albuterol sulfate 90 mcg/actuation HFA aerosol inhaler 2 puff inhalation Q4-6H PRN (Reason: shortness of breath or wheezing) 30 Days Qty: 8.5 0RF amoxicillin-pot clavulanate 875-125 mg tablet 1 tablet PO Q12H 7 Days Qty: 14 0RF No Action venlafaxine 37.5 mg capsule,extended release 24hr 37.5 mg PO DAILY amlodipine 5 mg tablet 5 mg PO DAILY insulin lispro 100 unit/mL insulin pen See Rx Instructions .ROUTE .COMPLEX Rx Instructions: Rx alprazolam 1 mg tablet 1 mg PO BID triamcinolone acetonide 0.1 % cream 1 applic topical BID Qty: 80 0RF (DME) lancets [Accu-Chek Softclix Lancets] Misc See Rx Instructions .ROUTE .MEDSUPPLY Qty: 50 0RF Rx Instructions: As directed (DME) insulin syringes (disposable) 1 mL syringe See Rx Instructions .ROUTE .MEDSUPPLY Qty: 500 0RF Rx Instructions: As directed (DME) pen needle, diabetic 29 gauge needle See Rx Instructions .ROUTE .MEDSUPPLY Qty: 90 0RF Rx Instructions: As directed (DME) lancets [BD Ultra Fine Lancets] 33 gauge misc See Rx Instructions .ROUTE .MEDSUPPLY Qty: 100 0RF Rx Instructions: As directed (DME) blood ketone glucose monitor Device See Rx Instructions .ROUTE .MEDSUPPLY Qty: 1 0RF Rx Instructions: As directed insulin glargine [Lantus U-100 Insulin] 100 unit/mL solution 20 units subcut DAILY insulin aspart U-100 [Novolog U-100 Insulin aspart] 100 unit/mL solution 20 units subcut TIDWM Follow-up/Referrals: Hardeep,Evan Anderson, INSURANCE INSTRUCTOR [Primary Care Provider] - Stand Alone Forms: Work/School Release IP Time of Disposition: 16:22 Quality NIHSS Nursing Documentation ED NIHSS nursing documentation: reviewed/agree
[2024-11-02 16:05] VITALS: BP 155/103; PULSE 80; RESP 18; TEMP 36.9; O2SAT 97
== END 2024-11-02 16:30 | disposition home or self-care (01) ==
PROVIDERS: Emergency Provider Nurse Practitioner Family; PCP Nurse Practitioner Adult Health
DX: J18.9 Pneumonia, unspecified organism (principal); Z87.891 Personal history of nicotine dependence; E11.9 Type 2 diabetes mellitus without complications; Z79.4 Long term (current) use of insulin; K21.9 Gastro-esophageal reflux disease without esophagitis
CPT/HCPCS: 71046; 99213; G0463

== ENCOUNTER 2025-04-21 09:51 | Emergency (ER) | payer BC, SELFPAY ==
--- NOTE | 2025-04-21 09:55 | ED_ITS ---
HPI - Back Pain/Injury General Chief Complaint: Back Pain/Injury Stated Complaint: Back Pain Time Seen by Provider: 04/21/25 09:55 Source: patient Mode of arrival: ambulatory Limitations: no limitations History of Present Illness HPI Narrative: patient is a 34-year-old male presents with right lower back pain started 1 week ago. He reports lifting a lot of heavy things. Denies specific injury incident that could be related to this. Reports increased pain when he twists to left. Denies any trauma. Denies any lower extremity weakness bowel or bladder incontinence, and numb or numbness or tingling. Denies flank pain, dysuria, urinary frequency or hematuria. Reports he is a type 2 diabetic on an insulin. Related Data Home Medications ?Medication ?Instructions ?Recorded ?Confirmed ?Last Taken ?Type insulin aspart U-100 100 unit/mL 20 units subcut TIDWM 12/08/21 03/18/24 Unknown History subcutaneous solution (Novolog U-100 Insulin aspart) insulin glargine 100 unit/mL 20 units subcut DAILY 12/08/21 03/18/24 Unknown History subcutaneous solution (Lantus U-100 Insulin) alprazolam 1 mg tablet 1 mg PO BID 03/18/24 03/18/24 Unknown History amlodipine 5 mg tablet 5 mg PO DAILY 03/18/24 03/18/24 Unknown History insulin lispro 100 unit/mL See Rx Instructions .Route .COMPLEX 03/18/24 03/18/24 Unknown History subcutaneous pen venlafaxine 37.5 mg 37.5 mg PO DAILY 03/18/24 03/18/24 Unknown History capsule,extended release 24 hr lisinopril 20 mg tablet mg 04/21/25 Unknown History semaglutide 7 mg tablet (Rybelsus) mg PO 04/21/25 Unknown History Allergies Allergy/AdvReac Type Severity Reaction Status Date / Time No Known Allergies Allergy Verified 04/21/25 09:57 Review of Systems Review of Systems: All systems reviewed & are unremarkable except as noted in HPI and below Constitutional: Constitutional: Denies body ache(s), Denies chills, Denies fatigue, Denies fever(s), Denies headache(s), Denies malaise and Denies weakness Eyes: Eyes: Denies blurry vision, Denies irritation and Denies loss of vision ENT: Denies otalgia, Denies headache(s), Denies nasal discharge, Denies sinus pain and Denies sore throat Cardiovascular: Cardiovascular: Denies chest pain, Denies irregular heart rhythm and Denies dyspnea Respiratory: Respiratory: Denies dyspnea Gastrointestinal: Gastrointestinal: Denies abdominal pain, Denies melena, Denies hematochezia, Denies diarrhea, Denies nausea and Denies vomiting Genitourinary: Genitourinary: Denies hematuria, Denies oliguria, Denies genital pain, Denies dysuria, Denies flank pain, Denies penile discharge, Denies testicular pain, Denies urinary frequency and Denies urinary incontinence Musculoskeletal: Musculoskeletal: Denies abnormal gait, Reports back pain (Right lower back pain), Denies myalgias, Denies arthralgias, Denies numbness and Denies tingling Integumentary/Breasts: Skin/Breast: Denies pruritus and Denies rash Neurologic: Denies headache(s), Denies loss of vision and Denies weakness Psychiatric: Psychiatric: Reports no additional psychiatric complaints Endocrine: Endocrine: Denies fatigue PMFSH Past Medical History Medical History GERD (gastroesophageal reflux disease) Diabetes mellitus type 2 with complications Acid reflux Surgical History Surgical History No pertinent past surgical history Family History Family History Mother Hypertension Grandparent Prostate carcinoma Grandparent Diabetes mellitus Social History Social History Smoking packs per day: 0.25 Smoking cigarettes per day: 5.0 Years smoked: 7 Smoking pack-years: 1.75 Smoking status: Former smoker Tobacco type: cigarettes Second hand tobacco smoke exposure: Yes Smoking end date: 10/05/20 Alcohol intake: former Substance use: never Last use: was drinking 2 beers a day Gender identity (if verbalized by the patient): Male Spiritual care concerns: No Comments At time of signature, agree with nursing past medical, surgical, social and family history. There is no relevant family history pertinent to the presenting complaint. Exam Const: General: cooperative, healthy appearing, comfortable, no acute distress and well nourished Nutritional Appearance: well nourished Orientation/consciousness: patient oriented x3 Limitations: no limitations HENMT: Head: normal to inspection, normocephalic and atraumatic Ears: hearing grossly normal bilaterally and external ears normal Face/Nose/Sinus: Normal external nose present, normal facial exam and face symmetric Face and sinus: normal facial exam and face symmetric Mouth: Yes lip normal Eyes: General: appearance normal, both eyes and all related structures Alignment and Position: alignment normal and position normal Periorbital: periorbital findings normal Eyelids: eyelids normal Pupils: Equal, round and reactive pupils present EOM: EOMs intact bilaterally Neck: Neck: normal visual inspection, full ROM and supple Chest: Chest palpation & inspection: normal inspection of the chest Resp: Effort & Inspection: normal respiratory effort and able to speak in complete sentences Auscultation: clear to auscultation bilaterally Cardio: Rate: regular rate Rhythm: regular rhythm Heart sounds: S1 normal heart sound present and S2 normal heart sound present GI: Inspection: normal to inspection Back/Spine/Pelvis: Back: no CVA tenderness, No erythema and No warmth Cervical Spine: No Cervical spine tenderness and No step off deformity T horacic/Lumbar Spine: straight leg raise negative bilaterally, No mass, paraspinal muscle tenderness on the right, No thoracic spinal tenderness and No lumbar spinal tenderness Skin: General skin exam: normal color and no rashes or lesions noted Trauma: no lacerations or abrasions Neuro: General: patient oriented x3 and moves all extremities Cognition (Neuro): normal cognition Speech: normal speech Gait exam (Neuro): Normal gait present Motor exam (neuro): 5/5 motor strength present throughout, Normal motor muscle tone present throughout and Motor abnormalities not present Sensory Exam: normal sensation Extrem: General: normal to inspection, full ROM and no edema Psych: Appearance: grossly normal and well kempt Mental Status: mental status grossly normal Speech and movement: Normal speech and movement present Affect: normal affect Attitude: cooperative Thought process: Normal thought process present Course Course Emergency Course: Patient is aware of diagnosis, understands and agrees to treatment plan. Anticipatory guidance given. Patient agrees to follow-up as directed and is aware of reasons to seek care at the emergency department. Portions of this record may have been created with voice recognition software Level of Care: Express Care Visit Vital Signs Vital signs: Vital Signs Temperature 36.2 C L 04/21/25 09:59 Pulse Rate 85 04/21/25 09:59 Respiratory Rate 16 04/21/25 09:59 Blood Pressure 135/89 04/21/25 09:59 Pulse Oximetry 97 04/21/25 09:59 Oxygen Delivery Room Air 04/21/25 09:59 Temperature 36.2 C L 04/21/25 09:59 Pulse Rate 85 04/21/25 09:59 Respiratory Rate 16 04/21/25 09:59 Blood Pressure 135/89 04/21/25 09:59 Pulse Oximetry 97 04/21/25 09:59 Oxygen Delivery Room Air 04/21/25 09:59 Reviewed MDM - Back Pain/Injury MDM Narrative Medical decision making narrative: No risk factors or findings concerning for epidural abscess, diskitis, vertebral osteomyelitis, cord compression, cauda equina, vertebral fracture or bone malignancy, AAA, or pyelonephritis. Patient instructed to consider further imaging and workup through their primary care physician as an outpatient if symptoms persist. Pt well hydrated appearing, in no respiratory distress, hemodynamically stable. Recommend supportive care. The patient is stable at time of discharge the clinical impression was discussed and the patient was given the opportunity to ask questions, which were addressed as completely as possible given the information available at present. Anticipatory guidance and return to care precautions were discussed and the importance of primary care follow-up was stressed and encouraged. The patient voiced understanding of the plan, ling cations to return, and the need for follow-up. Exam findings show no acute concerns or changes Patient is appropriate for outpatient treatment and follow-up. Differential Diagnosis Differential diagnosis: Likely lumbar radiculopathy, sciatica, strain of lumbar region, renal colic and pyelonephritis Medical Records Attestation: I reviewed the patient's medical records. Lab Data Attestation: I reviewed the patient's lab results. Labs: Lab Results 04/21/25 Range/Units 10:18 POC Urine Color Yellow POC Urine Clarity Clear POC Urine pH 8.0 POC Ur Specif [place] 1.015 POC Urine Protein Negative (Negative) POC Ur Glucose (UA) 2+ (Negative) POC Urine Ketones Negative (Negative) POC Urine Blood Negative (Negative) POC Urine Nitrite Negative (Negative) POC Urine Bilirubin Negative (Negative) POC Urine Urobilinogen 0.2 POC U Leukocyte Esteras Negative (Negative) Discharge Plan Discharge Clinical Impression: Strain of lumbar region Qualifiers: Encounter type: initial encounter Qualified Code(s): S39.012A - Strain of muscle, fascia and tendon of lower back, initial encounter Patient Disposition: Home Condition: Stable Instructions: Acute Low Back Pain (ED) Additional Instructions: Take Aleve twice a day for the next 5-7 days(or ibuprofen 600 mg every 6 hours), take muscle relaxers every 8 hours as needed for muscle spasm. do not drive or make any important decisions while on this medication for it can make you drowsy Exercise:Combine aerobic exercise, like walking or swimming, with specific exercises to keep the muscles in your back and abdomen strong and flexible.bed rest is not recommended. Proper Lifting:Be sure to lift heavy items with your legs, not your back. Do not bend over to pick something up. Keep your back straight and bend at your knees. Weight:Maintain a healthy weight. Being overweight puts added stress on your lower back. Avoid Smoking:Both the smoke and the nicotine cause your spine to age faster than normal. Proper Posture:Good posture is important for avoiding future problems. A therapist can teach you how to safely stand, sit, and lift. Use warm moist heat or ice to help with pain. Follow up with Primary provider in 2-3 days, This may become a chronic condition and they will be the one to help manage your pain and order additional testing. Follow-up with your doctor for further care and evaluation or seek ER if you develop problems with bladder/bowel function, weakness or loss of feeling in one or both of your legs. Abdominal numbness most likely due to history of frequent abdominal injections, for your diabetes. Considering no nausea, vomiting, or abdominal pain. Patient Language: Vietnamese Prescriptions: New baclofen 10 mg tablet 10 mg PO TID 5 Days Qty: 15 0RF ibuprofen 600 mg tablet 600 mg PO TID PRN (Reason: pain) Qty: 50 0RF No Action venlafaxine 37.5 mg capsule,extended release 24hr 37.5 mg PO DAILY amlodipine 5 mg tablet 5 mg PO DAILY insulin lispro 100 unit/mL insulin pen See Rx Instructions .ROUTE .COMPLEX Rx Instructions: Rx alprazolam 1 mg tablet 1 mg PO BID albuterol sulfate 90 mcg/actuation HFA aerosol inhaler 2 puff inhalation Q4-6H PRN (Reason: shortness of breath or wheezing) 30 Days Qty: 8.5 0RF lisinopril 20 mg tablet Rybelsus 7 mg tablet PO (DME) lancets [Accu-Chek Softclix Lancets] Misc See Rx Instructions .ROUTE .MEDSUPPLY Qty: 50 0RF Rx Instructions: As directed (DME) insulin syringes (disposable) 1 mL syringe See Rx Instructions .ROUTE .MEDSUPPLY Qty: 500 0RF Rx Instructions: As directed (DME) pen needle, diabetic 29 gauge needle See Rx Instructions .ROUTE .MEDSUPPLY Qty: 90 0RF Rx Instructions: As directed (DME) lancets [BD Ultra Fine Lancets] 33 gauge misc See Rx Instructions .ROUTE .MEDSUPPLY Qty: 100 0RF Rx Instructions: As directed (DME) blood ketone glucose monitor Device See Rx Instructions .ROUTE .MEDSUPPLY Qty: 1 0RF Rx Instructions: As directed insulin glargine [Lantus U-100 Insulin] 100 unit/mL solution 20 units subcut DAILY insulin aspart U-100 [Novolog U-100 Insulin aspart] 100 unit/mL solution 20 units subcut TIDWM Follow-up/Referrals: Hardeep,Evan Anderson, BUSINESS PROCESS REPRESENTATIVE [Primary Care Provider] - 3 Days Stand Alone Forms: Work/School Release IP Time of Disposition: 10:44
[2025-04-21 09:59] VITALS: BP 135/89; PULSE 85; RESP 16; TEMP 36.2; O2SAT 97
[2025-04-21 10:20] LABS: EDUAAPPEAR Clear; EDUABILI Negative (Negative); EDUABLOOD Negative (Negative); EDUACOLOR1 Yellow; EDUAGLUCOSE 2+ (Negative); EDUAKETONE Negative (Negative); EDUALEUKO Negative (Negative); EDUANITRATE Negative (Negative); EDUAPROTEIN Negative (Negative); EDUASPGRAVITY 1.015; EDUAUROBILI 0.2
== END 2025-04-21 10:50 | disposition home or self-care (01) ==
PROVIDERS: Emergency Provider Nurse Practitioner Family; PCP Nurse Practitioner Adult Health
DX: S39.012A Strain of muscle, fascia and tendon of lower back, initial encounter (principal); X50.0XXA Overexertion from strenuous movement or load, initial encounter; E11.9 Type 2 diabetes mellitus without complications; Z79.4 Long term (current) use of insulin; K21.9 Gastro-esophageal reflux disease without esophagitis; Z87.891 Personal history of nicotine dependence
CPT/HCPCS: 81003; 99213; G0463